=== PATIENT | male | born 1935 | race Caucasian/White ===

== ENCOUNTER → 2018-07-29 | Outpatient (CLI) | payer MEDICARE, BC ==
--- NOTE | 2018-07-29 08:57 | US ---
EXAMINATION TYPE: US carotid duplex BILAT DATE OF EXAM: 07/29/2018 COMPARISON: NONE CLINICAL HISTORY: 83-year-old male R09.89 right carotid bruit. Right carotid bruit, no hx of TIA, no HTN TECHNIQUE: Carotid duplex ultrasound examination. Direct axial criteria utilized. FINDINGS: EXAM MEASUREMENTS: RIGHT: Peak Systolic Velocity (PSV) cm/sec ----- Right CCA: 85.3 ----- Right ICA: 241.6 ----- Right ECA: 103.7 ICA/CCA ratio: 2.8 RIGHT: End Diastole cm/sec ----- Right CCA: 11.7 ----- Right ICA: 47.4 ----- Right ECA: 0.0 LEFT: Peak Systolic Velocity (PSV) cm/sec ----- Left CCA: 106.6 ----- Left ICA: 109.5 ----- Left ECA: 146.3 ICA/CCA ratio: 1.0 LEFT: End Diastole cm/sec ----- Left CCA: 20.6 ----- Left ICA: 28.0 ----- Left ECA: 0.0 VERTEBRALS (direction of flow): Right Vertebral: Antegrade Left Vertebral: Antegrade Rhythm: Normal Fire Safety Director notes: Bilateral wall thickening, plaque seen in bilateral bulbs extending into proximal ICA and left CCA significant stenosis. Elevated right ICA, right bulb and left ECA velocities. IMPRESSION: Proximal right ICA shows elevated velocities. CT angiography of the neck can assess for a potential s evere >70% stenosis. Criteria for Assigning % of Stenosis / Diameter reduction (Estimation based on the indirect measurements of the internal carotid artery velocities (ICA PSV). 1. Normal (no stenosis)=ICA PSV < 125 cm/s: ratio < 2.0: ICA EDV<40 cm/s. 2. Less than 50% stenosis=ICA PSV < 125 cm/s: ratio < 2.0: ICA EDV<40 cm/s. 3. 50 to 69% stenosis=ICA PSV of 125 to 230 cm/s: ration 2.0 ? 4.0: ICA EDV 40-100 cm/s. 4. Greater than 70% stenosis to near occlusion= ICA PSV > 230 cm/s: ratio > 4.0: ICA EDV > 100 cm/s. 5. Near occlusion= ICA PSV velocities may be low or undetectable: variable ratio and ICA EDV. 6. Total occlusion=unable to detect flow.
== END | disposition home or self-care (01) ==
LOC: RADUSWWP 08:08
PROVIDERS: ATTEND Internal Medicine
DX: R09.89 Other specified symptoms and signs involving the circulatory and respiratory systems (principal)
CPT/HCPCS: 93880

== ENCOUNTER → 2018-08-16 | Outpatient (CLI) | payer MEDICARE, BC ==
--- NOTE | 2018-08-16 17:39 | CT ---
EXAMINATION TYPE: CT angio neck DATE OF EXAM: 08/16/2018 HISTORY: Episodes of confusion COMPARISON: Ultrasound 07/29/2018 CT DLP: 243.3 mGycm. Automated Exposure Control for Dose Reduction was Utilized. TECHNIQUE: CTA scan of the neck is performed with IV Contrast, patient injected with 50 mL of Isovue 370, axial images are obtained, coronal and sagittal reformatted images are reviewed. Three-D recons tructed images are created on an independent workstation and reviewed. FINDINGS: Carotid/Vascular Structures: There is a three-vessel arch. Vertebral arteries are codominant. Common carotid arteries have calcification at the bifurcation. This appears to be causing a moderate stenosi s on the left of 50% to less than 70%. There is some poststenotic dilatation noted. Critical stenosis appears to be present at the right carotid bifurcation due to calcification. This is greater than 70 % may be over 90%. Other: Note is made of a small right pleural effusion. There is a consolidation which may be related atelectasis or fibrosis within the right middle lobe adjacent to the major fissure. IMPRESSION: 1. Findings highly suggestive for critical stenosis at the origin of the right internal carotid arter y. Velocities from ultrasound may underestimate the degree of stenosis. 2. More moderate narrowing of the left internal carotid artery origin estimated between 50 and 69%. C orrelate with symptoms. A [place] level critical message alert has been initiated for Chris Aldana MD via the [facility] Critical Results System on 08/16/2018 5:37 PM. This message alert has been sent to Chris Aldana MD via the preferences provided by the clinician for the receipt of Radiology Critical Findings. Message ID [id number].
== END | disposition home or self-care (01) ==
LOC: RADCTMAIN 08:40
PROVIDERS: ATTEND Internal Medicine
DX: I65.22 Occlusion and stenosis of left carotid artery (principal)
CPT/HCPCS: 82565; 84520; 70498; 36415; Q9967

== ENCOUNTER → 2018-08-23 | Outpatient (CLI) | payer MEDICARE, BC ==
--- NOTE | 2018-08-23 16:28 | XR ---
EXAMINATION TYPE: XR chest 2V DATE OF EXAM: 08/23/2018 COMPARISON: Prior chest x-ray 08/11/[address] 08/26/2018 HISTORY: Cough TECHNIQUE: Frontal and lateral views of the chest are obtained. FINDINGS: There is some thickening of the minor fissure, some local airspace disease suspected as on prior exams. Interstitium is mildly increased, apical pleural thickening is again noted. Aorta is de nse. There is a calcified noted in the aorticopulmonary window. No pneumothorax or pleural effusion. Heart is stable. Degenerative disc changes are present in the visualized spine. Prominent lung volume s are compatible with underlying COPD, there is flattening the hemidiaphragms. Calcified nodularity i n left upper lobe is present. IMPRESSION: There may be underlying scarring. Difficult to exclude pneumonia. Old granulomatous dise ase.
== END | disposition home or self-care (01) ==
LOC: RADXRMAIN 14:18
PROVIDERS: ATTEND Internal Medicine
DX: R05 Cough (principal); L92.9 Granulomatous disorder of the skin and subcutaneous tissue, unspecified
CPT/HCPCS: 71046

== ENCOUNTER → 2018-09-09 | Outpatient (CLI) | payer MEDICARE, BC ==
--- NOTE | 2018-09-09 12:46 | XR ---
EXAMINATION TYPE: XR chest 2V DATE OF EXAM: 09/09/2018 COMPARISON: Prior chest x-ray 08/23/2018 HISTORY: Cough TECHNIQUE: Frontal and lateral views of the chest are obtained. FINDINGS: There are prominent lung volumes with flattening the hemidiaphragms. Interstitium is promi nent. There are areas of probable scarring in the right mid lung. Apical pleural thickening is stable . Cardiomediastinal silhouette, pulmonary vascularity and melanie not significantly changed. Aorta is de nse. Evidence of old granulomatous disease again noted. IMPRESSION: There is interval improvement in lung aeration.
== END | disposition home or self-care (01) ==
LOC: RADXRMAIN 10:07
PROVIDERS: ATTEND Internal Medicine
DX: Z09 Encounter for follow-up examination after completed treatment for conditions other than malignant neoplasm (principal); Z87.01 Personal history of pneumonia (recurrent); R05 Cough
CPT/HCPCS: 71046

== ENCOUNTER → 2018-09-16 | Outpatient (CLI) | payer MEDICARE, BC ==
[2018-09-16 15:07] LABS: Basophils # (A) 0.1 k/uL (0-0.2); Basophils % (A) 1 %; Eosinophils # (A) 0.2 k/uL (0-0.7); Eosinophils % (A) 2 %; HCT 35.9 % (39.0-53.0); HGB 11.6 gm/dL (13.0-17.5); Lymphocytes # (A) 1.9 k/uL (1.0-4.8); Lymphocytes % (A) 26 %; MCH 30.7 pg (25.0-35.0); MCHC 32.2 g/dL (31.0-37.0); MCV 95.3 fL (80.0-100.0); Mean Platelet Volume 7.5; Monocytes # (A) 0.4 k/uL (0-1.0); Monocytes % (A) 6 %; Neutrophils # (A) 4.8 k/uL (1.3-7.7); Neutrophils % (A) 65 %; Platelet Count 217 k/uL (150-450); RBC 3.76 m/uL (4.30-5.90); RDW 14.1 % (11.5-15.5); WBC 7.4 k/uL (3.8-10.6)
[2018-09-16 15:13] LABS: Potassium 4.5 mmol/L (3.5-5.1)
== END | disposition home or self-care (01) ==
LOC: LABWHC1 14:23
PROVIDERS: ATTEND Surgery
DX: Z01.812 Encounter for preprocedural laboratory examination (principal); I65.21 Occlusion and stenosis of right carotid artery
CPT/HCPCS: 80051; 82565; 84520; 85025

== ENCOUNTER → 2018-09-22 | Outpatient (CLI) | payer MEDICARE, BC ==
[2018-09-22 11:12] LABS: Basophils # (A) 0.1 k/uL (0-0.2); Basophils % (A) 1 %; Eosinophils # (A) 0.1 k/uL (0-0.7); Eosinophils % (A) 2 %; HCT 38.2 % (39.0-53.0); HGB 12.3 gm/dL (13.0-17.5); Lymphocytes # (A) 1.5 k/uL (1.0-4.8); Lymphocytes % (A) 19 %; MCH 30.8 pg (25.0-35.0); MCHC 32.1 g/dL (31.0-37.0); MCV 95.9 fL (80.0-100.0); Mean Platelet Volume 7.4; Monocytes # (A) 0.4 k/uL (0-1.0); Monocytes % (A) 6 %; Neutrophils # (A) 5.4 k/uL (1.3-7.7); Neutrophils % (A) 71 %; Platelet Count 262 k/uL (150-450); RBC 3.98 m/uL (4.30-5.90); RDW 14.6 % (11.5-15.5); WBC 7.6 k/uL (3.8-10.6)
[2018-09-22 11:21] LABS: Potassium 4.5 mmol/L (3.5-5.1)
== END | disposition home or self-care (01) ==
LOC: LABPAT 10:15
PROVIDERS: ATTEND Surgery
DX: Z01.812 Encounter for preprocedural laboratory examination (principal); I65.21 Occlusion and stenosis of right carotid artery
CPT/HCPCS: 80051; 82565; 84520; 85025; 86850; 86900; 86901

== ENCOUNTER 2018-09-27 11:26 | Inpatient (IN) | payer MEDICARE, BC ==
[~2018-09-27 11:26] MED LIST: LIDOCAINE 1% 20 ML VIAL (10MG/ML) FOR IV START INTRADERMA PRN; ONDANSETRON 4 MG/2 ML VIAL IVP ONE
[2018-09-27] MEDS: LACTATED RINGERS 1,000 ML IV SCH (12:01)
[2018-09-27] MEDS ORDERED: HEPARIN SODIUM,PORCINE 10,000 UNIT/ML 1 ML VIAL ONE (13:03)
[2018-09-27] MEDS ORDERED: LIDOCAINE 1% INJ 10MG/ML (20 ML MDV) ONE (13:03)
[2018-09-27] MEDS ORDERED: PROPOFOL 10 MG/ML 20 ML VIAL IV ONE (13:03)
[2018-09-27] MEDS ORDERED: GLYCOPYRROLATE 0.2 MG/ML 2 ML VIAL ONE (13:03)
[2018-09-27] MEDS ORDERED: PROTAMINE SULFATE 10 MG/ML 5 ML VIAL IV ONE (13:03)
[2018-09-27] MEDS ORDERED: LABETALOL 5 MG/ML VIAL MDV ONE (13:03)
[2018-09-27] MEDS ORDERED: ROCURONIUM BROMIDE 10 MG/ML 10 ML VIAL IV ONE (13:03)
[2018-09-27] MEDS ORDERED: fentaNYL (PF) 50 MCG/ML 2 ML AMP ONE (13:03)
[2018-09-27] MEDS ORDERED: NEOSTIGMINE 1 MG/ML 10 ML VIAL ONE (13:03)
[2018-09-27] MEDS ORDERED: PHENYLEPHRINE-0.9% NACL SYG 1 MG/10 ML SYRINGE ONE (13:03)
[2018-09-27] MEDS ORDERED: LACTATED RINGERS 1,000 ML IV ONE (15:04)
--- NOTE | 2018-09-27 15:16 | P.OP ---
Date of Procedure: 09/27/18 Preoperative Diagnosis: Hemodynamically severe right internal carotid artery stenosis Postoperative Diagnosis: Same. Procedure(s) Performed: Right carotid endarterectomy with patch angioplasty. Anesthesia: JOSE ANTONIO Surgeon: Paul Prakash Estimated Blood Loss (ml): 75 IV fluids (ml): 800 Urine output (ml): 500 Pathology: other (Carotid Plaque) Condition: stable Disposition: ICU Indications for Procedure: Greater than 80% right internal carotid artery stenosis Operative Findings: Partially calcified hemodynamically severe right internal carotid artery stenosis Description of Procedure: Patient was brought the upper and placed in the supine position and administered general endotracheal anesthesia delivered by the department anesthesiology. Patient received intravenously administered prophylactic antibiotics in the perioperative phase. Yoder catheter was placed to gravity drainage. The patient's right lateral neck, supraclavicular and anterior chest wall areas were sterilely prepped and draped in the usual manner. Skin incision along the anterior border of the sternocleidomastoid muscle was made and carried down through the subcu change tissues. Hemostasis was achieved using electrocautery. Platysma muscle was divided and dissection was then carried along the anterior border of the sternocleidomastoid muscle. The facial vein was identified dissected free of investing tissues doubly ligated and divided. The common carotid artery was identified and dissected free of investing tissues. The vagus nerve was identified and left undisturbed. The dissection was carried along the common carotid to the level of bulb. The superior thyroid and external carotid arteries were dissected free of investing tissues and encircled with Vesseloops. The dissection was then carried cephalad along the internal carotid artery to a level past the distal portion of the plaque. The hypoglossal nerve was identified and left undisturbed. The patient was systemically heparinized and ACT was drawn and found to be 350. The Vesseloops surrounding the internal carotid as well as the external carotid, superior thyroid and common carotid arteries were drawn closed. Arteriotomy was made in the common extendable through the level of bulb and into the internal carotid past the level of plaque. Stump pressures were obtained. These were quite low at 23 mmHg mean and a shunt was then placed. Endarterectomy was performed beginning in the common extended to the level of the bulb. A retraction endarterectomy was performed on the external system. The endarterectomy plane was then extended into the internal segment and the distal end feathered off quite well without the need for tacking sutures. The plaque was sent to the department of pathology. The remaining luminal surface was inspected for any loose or free-floating material and this was removed where identified. A bovine pericardial patch was then selected and patch angioplasty closure of the arteriotomy was completed with 6-0 Prolene suture. Just prior to completion of the anastomotic line the internal carotid artery was backbled and no thrombus was retrieved. The arteriotomy was closure was completed. The internal carotid artery was backbled once again and then occluded at its origin. Vessel loops surrounding the superior thyroid, external carotid as well as the common carotid arteries were then released thus flushing any potential debris into the external system. Flow was then restored into the internal carotid segment. One point of bleeding was identified along the anastomotic line and this was controlled with Prolene suture. Excellent pulse in the internal carotid artery distal to the endarterectomy plane was identified. The patient received 25 mg protamine to reverse the heparin effect. The wound was irrigated with antibiotic containing solution. Hemostasis was judged adequate. Deep tissues were closed with 3-0 Vicryl dermis was closed with 4-0 Monocryl placed in running intradermal fashion. Steri-Strips and appropriate dressings were applied. Patient tolerated the procedure well and awoke without apparent complication and was transferred to the recovery area in satisfactory and stable condition.
[2018-09-27] MEDS: HYDROmorphone 0.5 MG/0.5 ML SYRINGE IVP PRN ×2 (15:32→15:42)
[2018-09-27] MEDS ORDERED: DOCUSATE 100 MG CAP PO PRN (16:15)
[2018-09-27] MEDS ORDERED: ALPRAZolam 0.25 MG TAB PO PRN (16:15)
[2018-09-27] MEDS ORDERED: HYDROcodone/APAP 5-325MG 1 EACH TAB PO PRN (16:15)
[2018-09-27 16:24] LABS: Glucose,Whole Blood 86 mg/dL (75-99)
[2018-09-27 16:33] VITALS: BMI 23.1
[2018-09-27] MEDS: SODIUM CHLORIDE 0.9% 1,000 ML IV SCH (16:40)
[2018-09-27] MEDS: ASPIRIN 81 MG PO SCH (17:06)
[2018-09-27] MEDS ORDERED: ACETAMINOPHEN TAB 325 MG TAB PO PRN (20:39)
[2018-09-27] MEDS ORDERED: ATORVASTATIN 20 MG TAB PO SCH (21:00)
[2018-09-28] MEDS: LACTATED RINGERS 1,000 ML IV SCH (01:36)
[2018-09-28 05:05] LABS: Basophils % (A) 0 %; Eosinophils # (A) 0.2 k/uL (0-0.7); Eosinophils % (A) 2 %; HCT 32.3 % (39.0-53.0); HGB 10.8 gm/dL (13.0-17.5); Lymphocytes # (A) 1.4 k/uL (1.0-4.8); Lymphocytes % (A) 19 %; MCH 31.2 pg (25.0-35.0); MCHC 33.3 g/dL (31.0-37.0); MCV 93.6 fL (80.0-100.0); Mean Platelet Volume 7.3; Monocytes # (A) 0.5 k/uL (0-1.0); Monocytes % (A) 6 %; Neutrophils # (A) 5.3 k/uL (1.3-7.7); Neutrophils % (A) 71 %; Platelet Count 216 k/uL (150-450); RBC 3.45 m/uL (4.30-5.90); RDW 14.3 % (11.5-15.5); WBC 7.4 k/uL (3.8-10.6)
[2018-09-28] MEDS: SODIUM CHLORIDE 0.9% 1,000 ML IV SCH (05:07)
[2018-09-28 05:12] LABS: African American GFR (CKD) >90 (>60 ml/min/1.73 sqM); Anion Gap 6 mmol/L; Blood Urea Nitrogen 21 mg/dL (9-20); Calcium 8.2 mg/dL (8.4-10.2); Carbon Dioxide 23 mmol/L (22-30); Chloride 101 mmol/L (98-107); Glucose 93 mg/dL (74-99); Non-African American GFR(CKD) 82 (>60 ml/min/1.73 sqM); Potassium 4.3 mmol/L (3.5-5.1); Sodium 130 mmol/L (137-145)
[2018-09-28] MEDS: ASPIRIN 81 MG PO SCH (08:47)
[2018-09-28 08:55] VITALS: TEMP 98.1
--- NOTE | 2018-09-28 12:00 | P.CNPUL ---
History of Present Illness Consult date: 09/28/18 Requesting physician: Paul Prakash Reason for consult: other (Critical care management) Chief complaint: Carotid stenosis History of present illness: This is a very pleasant 83-year-old gentleman with a known history of gastroesophageal reflux disease. He was also recently found to have a greater than 80% right internal carotid artery artery stenosis. He presented here electively yesterday for right carotid endarterectomy with patch angioplasty performed by Dr. Prakash. He is seen today in consultation in the intensive care unit. He is awake and alert in no acute distress. No neurologic deficits. Currently sitting up in a chair at the bedside. No shortness of breath, cough or congestion. No dizziness lightheadedness. No headaches. No noted weakness. He is maintaining good O2 saturations in the upper 90s on room air. He's been hemodynamically stable. Afebrile. White count 7.4. Hemoglobin 10.8. Sodium 130. Potassium 4.3. Creatinine 0.82. Dressing to the right neck is dry and intact. 0.9 normal saline at 100 ML's per hour. Currently on Lipitor and aspirin. Review of Systems REVIEW OF SYSTEMS: CONSTITUTIONAL: Denies any recent significant weight loss or weight gain. EYES: Denies change in vision. EARS, NOSE, MOUTH, THROAT: Denies headaches, denies sore throat. CARDIOVASCULAR: Denies chest pain, palpitations or syncopal episodes. RESPIRATORY: Denies shortness of breath, cough, congestion or hemoptysis. GASTROINTESTINAL: Denies change in appetite, denies abdominal pain GENITOURINARY: Denies hematuria, denies infections. MUSKULOSKELETAL: Denies pain, denies swelling. INTEGUMENTARY: Denies rash, denies eczema. NEUROLOGICAL: Denies recent memory loss, no recent seizure activity. PSYCHIATRIC: Denies anxiety, denies depression. HEMATOLOGIC/LYMPHATIC: Denies anemia, denies enlarged lymph nodes. Past Medical History Past Medical History: Cancer, Chest Pain / Angina, COPD, GERD/Reflux, Hypertension, Osteoarthritis (OA), Pneumonia, Seizure Disorder, Vascular Disorder Additional Past Medical History / Comment(s): hx hypoglycemia. current - recurring bladder cancer for past 20 years. grand mal seizure age 30 none since- pt states [facility] attributed to low blood sugars, off balance at times, hand tremors, freq.night urination History of Any Multi-Drug Resistant Organisms: None Reported Past Surgical History: Back Surgery, Orthopedic Surgery Additional Past Surgical History / Comment(s): rt rotator cuff, haley cataract surgery Past Anesthesia/Blood Transfusion Reactions: No Reported Reaction Smoking Status: Former smoker - Past Family History Brother(s) Family Medical History: COPD Sister(s) Family Medical History: COPD Father Family Medical History: Eye Disorder Additional Family Medical History / Comment(s): macular degeneration Mother Family Medical History: CVA/TIA, Dementia, Neurologic Disorder Additional Family Medical History / Comment(s): parkinsons Medications and Allergies Home Medications Medication Instructions Recorded Confirmed Type Aspirin 81 mg PO DAILY 07/31/14 09/27/18 History Omeprazole 20 mg PO DAILY 07/31/14 09/27/18 History Nitroglycerin Sl Tabs [Nitrostat] 0.4 mg SUBLINGUAL Q5M PRN #25 tab 08/08/14 09/27/18 Rx Fexofenadine HCl [Berenice Allergy] 180 mg PO DAILY 09/20/18 09/27/18 History Lisinopril 10 mg PO DAILY 09/20/18 09/27/18 History Allergies Allergy/AdvReac Type Severity Reaction Status Date / Time adhesive tape Allergy Rash/Hives Verified 09/27/18 16:04 latex Allergy Rash/Hives Verified 09/27/18 16:04 codeine AdvReac Nausea & Verified 09/27/18 16:04 Vomiting Physical Exam Vitals: Vital Signs Temp Pulse Pulse Resp BP BP BP 09/28/18 11:00 64 15 101/55 09/28/18 10:00 64 14 134/78 09/28/18 09:00 67 14 143/61 09/28/18 08:00 98.1 F 68 12 118/62 09/28/18 07:00 80 22 118/62 09/28/18 06:00 60 12 118/62 09/28/18 05:00 68 7 L 102/49 09/28/18 04:00 98.6 F 61 10 L 09/28/18 03:00 73 10 L 09/28/18 02:00 58 L 8 L 92/49 09/28/18 01:00 66 12 92/49 09/28/18 00:00 98.4 F 63 10 L 101/51 09/27/18 23:00 61 10 L 101/51 09/27/18 22:31 61 11 L 101/51 09/27/18 22:00 62 10 L 101/51 09/27/18 21:00 66 11 L 101/51 09/27/18 20:00 98.0 F 67 13 101/51 09/27/18 19:00 74 17 09/27/18 18:30 68 16 90/48 09/27/18 18:00 66 10 L 106/59 09/27/18 17:00 60 58 L 6 L 09/27/18 16:30 97.6 F 62 15 106/59 09/27/18 15:45 54 L 18 108/58 118/47 09/27/18 15:30 59 L 16 118/57 117/47 09/27/18 15:15 60 14 117/63 127/49 09/27/18 15:08 70 14 114/45 140/46 09/27/18 12:00 98.0 F 74 16 138/68 Pulse Ox 09/28/18 11:00 97 09/28/18 10:00 98 09/28/18 09:00 98 09/28/18 08:00 97 09/28/18 07:00 96 09/28/18 06:00 99 09/28/18 05:00 94 L 09/28/18 04:00 95 09/28/18 03:00 96 09/28/18 02:00 96 09/28/18 01:00 98 09/28/18 00:00 95 09/27/18 23:00 96 09/27/18 22:31 97 09/27/18 22:00 96 09/27/18 21:00 97 09/27/18 20:00 95 09/27/18 19:00 96 09/27/18 18:30 96 09/27/18 18:00 98 09/27/18 17:00 98 09/27/18 16:30 99 09/27/18 15:45 97 09/27/18 15:30 99 09/27/18 15:15 100 09/27/18 15:08 98 09/27/18 12:00 98 Intake and Output 09/27/18 09/28/18 09/28/18 22:59 06:59 14:59 Intake Total 1740 1200 640 Output Total 0 850 700 Balance 1740 350 -60 Intake: IV 800 800 340 Sodium Chloride 0.9% 1, 300 800 340 000 ml @ 100 mls/hr IV . Q10H DEANA Rx#:[id number] Intake, IV Titration 300 Amount Sodium Chloride 0.9% 1, 300 000 ml @ 100 mls/hr IV . Q10H DEANA Rx#:[id number] Oral 640 400 300 Output: Urine 0 850 700 Straight 600 Other: Voiding Method Self-Catheterization Weight 71.1 kg 75.9 kg ABP, PAP, CO, CI - Last 8 Hours Arterial Blood Pressure 119/47 GENERAL EXAM: Alert, active, pleasant 83-year-old gentleman, comfortable in no apparent distress. On room air. HEAD: Normocephalic. EYES: Normal reaction of pupils, equal size. NOSE: Clear with pink turbinates. THROAT: No erythema or exudates. NECK: Dressing to the right neck is dry and intact. No masses, no JVD. CHEST: No chest wall deformity. LUNGS: Equal air entry with no crackles, wheeze, rhonchi or dullness. CVS: S1 and S2 normal with no audible murmur, regular rhythm. ABDOMEN: No hepatosplenomegaly, normal bowel sounds, no guarding or rigidity. SPINE: No scoliosis or deformity SKIN: No rashes CENTRAL NERVOUS SYSTEM: No focal deficits, tone is normal in all 4 extremities. EXTREMITIES: There is no peripheral edema. No clubbing, no cyanosis. Peripheral pulses are intact. Results - Laboratory Findings CBC and BMP: 09/28/18 04:50 09/28/18 04:50 Abnormal lab findings: Abnormal Labs 09/28/18 09/28/18 04:50 04:50 RBC 3.45 L Hgb 10.8 L Hct 32.3 L Sodium 130 L BUN 21 H Calcium 8.2 L Assessment and Plan Assessment: Impression: #1 Significant right-sided carotid stenosis greater than 80%. Status post right carotid endarterectomy with patch angioplasty. This operative day #1. #2 Remote history of chronic tobacco dependence. #3 Gastroesophageal reflux disease. Plan: The patient was seen and evaluated by Dr. Colunga. He is stable from the critical care standpoint. Probable discharge home today once cleared by vascula r surgery. In the interim, we'll continue full supportive care. No neurologic deficits. I, the cosigning physician, performed a history & physical examination of the patient. Lungs sounds are clear. Maintaining good O2 saturations in the 90s on room air. I discussed the assessment and plan of care with my nurse practitioner, Angeline Chisholm. I attest to the above note as dictated by her. Time with Patient: Greater than 30
[2018-09-28 15:13] VITALS: BP 129/56; PULSE 71; RESP 16
== END 2018-09-28 15:26 | disposition home or self-care (01) | DRG 39 ==
LOC: 2ORMAIN 11:26 → 2SICU 15:12
PROVIDERS: ADMIT Surgery; ATTEND Surgery
PROC: 03UK0KZ Supplement Right Internal Carotid Artery with Nonautologous Tissue Substitute, Open Approach (ICD-10-PCS; 2018-09-27)
PROC: 03CK0ZZ Extirpation of Matter from Right Internal Carotid Artery, Open Approach (ICD-10-PCS; principal; 2018-09-27 13:00)
DX: I65.21 Occlusion and stenosis of right carotid artery (principal); G40.909 Epilepsy, unspecified, not intractable, without status epilepticus; I10 Essential (primary) hypertension; J44.9 Chronic obstructive pulmonary disease, unspecified; K21.9 Gastro-esophageal reflux disease without esophagitis; Z79.82 Long term (current) use of aspirin; Z79.899 Other long term (current) drug therapy; Z82.0 Family history of epilepsy and other diseases of the nervous system; Z82.5 Family history of asthma and other chronic lower respiratory diseases; Z87.891 Personal history of nicotine dependence; Z87.01 Personal history of pneumonia (recurrent); Z98.42 Cataract extraction status, left eye; Z98.41 Cataract extraction status, right eye; Z83.518 Family history of other specified eye disorder; Z88.5 Allergy status to narcotic agent; Z91.040 Latex allergy status
CPT/HCPCS: 80048; 85025; 86850; 86900; 86901; 88304; 88311

== ENCOUNTER → 2019-02-23 | Outpatient (CLI) | payer MEDICARE, BC ==
--- NOTE | 2019-02-23 14:00 | MR ---
EXAMINATION TYPE: MR angio head wo con DATE OF EXAM: 02/23/2019 COMPARISON: MR brain same date HISTORY: Dizziness, status post carotid endarterectomy TECHNIQUE: Time of flight images focusing on the [place] of [place] were performed without contrast. Ru dimentary reconstructions on an alternate workstation. FINDINGS: Right vertebral artery is dominant, vertebral arteries are patent. Internal carotid arterie s are patent. No evident aneurysm, dissection, or embolus. Persistent origin of the posterior c erebral artery on the right is noted. The A1 segment of the right internal carotid artery is atrophic . IMPRESSION: No evident aneurysm or embolus. No dissection.
--- NOTE | 2019-02-23 14:12 | MR ---
EXAMINATION TYPE: MR brain wo/w con DATE OF EXAM: 02/23/2019 COMPARISON: MR angiogram same date HISTORY: Dizziness TECHNIQUE: Multiplanar, multisequence images of the brain and brainstem is performed without and with IV contras t, utilizing 7 mL intravenous Gadavist . FINDINGS: Artifact which may be due to dental work is noted anteriorly. Diffusion weighted images dem onstrate no evidence of a recent infarct or other diffusion abnormality. There is no extra-axial flu id collection. Confluent and scattered periventricular, Callosal, subcortical white matter hyperintensities present on inversion recovery T2-weighted sequenc es, approximately 30-40 lesions are present. There are normal vascular flow voids. The ventricular sy stem and cisternal spaces are normal in size and appearance. The brain volume is age appropriate. Th ere is cortical atrophy. Midline structures demonstrate normal morphology. The craniocervical junction appears within normal limits. Post contrast images demonstrate small focus of enhancement within the yara measuring approx imately 6 x 7 mm in size, the dural venous sinuses appear patent. The visualized sinuses are remarkab le for mild mucosal disease in the ethmoid air cells, frontal sinus and the globes are intact. IMPRESSION: Age-related atrophy and probable chronic small vessel ischemic changes. Findings within t he yara may represent capillary telangiectasia but is indeterminate.
== END | disposition home or self-care (01) ==
LOC: RADMRIMAIN 09:12
PROVIDERS: ATTEND Internal Medicine
DX: G31.1 Senile degeneration of brain, not elsewhere classified (principal); Z98.890 Other specified postprocedural states
CPT/HCPCS: 70544; 70553; A9585

== ENCOUNTER 2020-06-18 | Emergency (ER) | payer MEDICARE, BC ==
--- NOTE | 2020-06-18 17:09 | ED ---
Male Urogenital HPI - General Source: patient, RN notes reviewed Mode of arrival: ambulatory Limitations: no limitations <Burak Cortez - Last Filed: 06/18/20 17:47> <Nava Patel - Last Filed: 06/30/20 17:47> - General Chief complaint: Urogenital Stated complaint: Male UG Time Seen by Provider: 06/18/20 16:52 - History of Present Illness Initial comments: Patient is an 85-year-old male that presents to emergency department with urinary retention. He notes that he does have a history of bladder cancer and f ollows up with the urologist regularly for scopes. He notes that he was there this morning got a scope but has been able to void since then. He notes he did call the office back but the doctor had left so he came to the emergency room. He notes that he would prefer to get a straight cath versus a Yoder bag as he did drive himself here. He will follow-up with his urologist tomorrow in the office. He notes that he is usually able to void after scopes but today he didn't have to. He does have discomfort on palpation over his bladder. He denied any chest pain shortness of breath headache nausea vomiting diarrhea constipation fever fatigue chills. (Burak Cortez) - Related Data Home Medications Medication Instructions Recorded Confirmed Aspirin 81 mg PO DAILY 07/31/14 09/27/18 Omeprazole 20 mg PO DAILY 07/31/14 09/27/18 Fexofenadine HCl [Berenice Allergy] 180 mg PO DAILY 09/20/18 09/27/18 lisinopriL 10 mg PO DAILY 09/20/18 09/27/18 Previous Rx's Medication Instructions Recorded Nitroglycerin Sl Tabs [Nitrostat] 0.4 mg SUBLINGUAL Q5M PRN #25 tab 08/08/14 Acetaminophen Tab [Tylenol] 650 mg PO Q6HR PRN tab 09/28/18 Atorvastatin [Lipitor] 20 mg PO HS #30 tab 09/28/18 Allergies Allergy/AdvReac Type Severity Reaction Status Date / Time adhesive tape Allergy Rash/Hives Verified 06/18/20 17:22 latex Allergy Rash/Hives Verified 06/18/20 17:22 codeine AdvReac Nausea & Verified 06/18/20 17:22 Vomiting Review of Systems ROS Other: All systems not noted in ROS Statement are negative. <Burak Cortez - Last Filed: 06/18/20 17:47> ROS Other: All systems not noted in ROS Statement are negative. <ChintanbarbaraNava Tonja - Last Filed: 06/30/20 17:47> ROS Statement: Those systems with pertinent positive or pertinent negative responses have been documented in the HPI. Past Medical History Past Medical History: Cancer, Chest Pain / Angina, COPD, GERD/Reflux, Hypertension, Osteoarthritis (OA), Pneumonia, Seizure Disorder, Vascular Disorder Additional Past Medical History / Comment(s): hx hypoglycemia. current - recurring bladder cancer for past 20 years. grand mal seizure age 30 none since- pt states [facility] attributed to low blood sugars, off balance at times, hand tremors, freq.night urination History of Any Multi-Drug Resistant Organisms: None Reported Past Surgical History: Back Surgery, Orthopedic Surgery Additional Past Surgical History / Comment(s): rt rotator cuff, haley cataract surgery , skin cancer- Past Anesthesia/Blood Transfusion Reactions: No Reported Reaction Past Psychological History: No Psychological Hx Reported Smoking Status: Former smoker Past Alcohol Use History: Daily Past Drug Use History: None Reported - Past Family History Brother(s) Family Medical History: COPD Sister(s) Family Medical History: COPD Father Family Medical History: Eye Disorder Additional Family Medical History / Comment(s): macular degeneration Mother Family Medical History: CVA/TIA, Dementia, Neurologic Disorder Additional Family Medical History / Comment(s): parkinsons <Burak Cortez - Last Filed: 06/18/20 17:47> General Exam Limitations: no limitations General appearance: alert, in no apparent distress Head exam: Present: atraumatic, normocephalic, normal inspection Eye exam: Present: normal appearance, PERRL, EOMI. Absent: scleral icterus, conjunctival injection, periorbital swelling ENT exam: Present: normal exam, mucous membranes moist Neck exam: Present: normal inspection Respiratory exam: Present: normal lung sounds bilaterally. Absent: respiratory distress, wheezes, rales, rhonchi, stridor Cardiovascular Exam: Present: regular rate, normal rhythm, normal heart sounds. Absent: systolic murmur, diastolic murmur, rubs, gallop, clicks GI/Abdominal exam: Present: soft, tenderness (Over the bladder more discomfort than anything), normal bowel sounds. Absent: distended, guarding, rebound, rigid Extremities exam: Present: normal inspection, full ROM, normal capillary refill. Absent: tenderness, pedal edema, joint swelling, calf tenderness Neurological exam: Present: alert, oriented X3, CN II-XII intact Psychiatric exam: Present: normal affect, normal mood Skin exam: Present: warm, dry, intact, normal color. Absent: rash <Burak Cortez - Last Filed: 06/18/20 17:47> Course Vital Signs 06/18/20 16:43 Temperature 97.3 F L Pulse Rate 75 Respiratory 18 Rate Blood Pressure 122/67 O2 Sat by Pulse 99 Oximetry Medical Decision Making <Burak Cortez - Last Filed: 06/18/20 17:47> <Nava Patel - Last Filed: 06/30/20 17:47> - Medical Decision Making 85-year-old male complaining of bladder retention after a scope this morning at his urologist. Bladder scan, straight urinary catheterization ordered. Patient says he feels much better after the straight catheterization. Case discussed with Dr. Patel, patient to follow-up with urologist in the morning. (Burak Cortez) I was available for consultation in the emergency department. The history and physical exam were done by the midlevel provider. I was consulted for this patients care. I reviewed the case with the midlevel provider and based on their presentation of the patient, I agree with the assessment, medical decision making and plan of care as documented. Chart was dictated using [employer] dictation software. Attempts were made to correct any dictation errors however some typographical errors may persist. Patient was seen during a national state of emergency due to the Covid-19 pandemic. (Nava Patel) Disposition Is patient prescribed a controlled substance at d/c from ED?: No Time of Disposition: 17:48 <Burak Cortez - Last Filed: 06/18/20 17:47> <Nava Patel - Last Filed: 06/30/20 17:47> Clinical Impression: Urinary retention Disposition: HOME SELF-CARE Condition: Stable Instructions (If sedation given, give patient instructions): Urinary Retention in Men (ED) Additional Instructions: Please return to the Emergency Department if symptoms worsen or any other concerns. Follow-up with primary care and urologist in the next day or 2. Referrals: Kaylyn Stanton MD [Primary Care Provider] - 1-2 days
== END 2020-06-18 17:59 | disposition home or self-care (01) ==
CPT/HCPCS: 51701; 88108; 99283

== ENCOUNTER → 2020-07-17 | Outpatient (CLI) | payer MEDICARE, BC ==
--- NOTE | 2020-07-17 11:09 | XR ---
EXAM TYPE: LUMBAR SPINE X RAY SERIES COMPARISON: NONE HISTORY: Back pain TECHNIQUE: 3 views are submitted. FINDINGS: Alignment is anatomic. The pedicles are intact. The transverse processes are intact. There is scol iosis with multilevel severe degenerative disc disease. Vascular calcifications are noted. Diffuse os teopenia. IMPRESSION: 1. Severe multilevel degenerative disc disease.
== END | disposition home or self-care (01) ==
LOC: RADXRMAIN 10:39
PROVIDERS: ATTEND Internal Medicine
DX: M51.36 Other intervertebral disc degeneration, lumbar region (principal)
CPT/HCPCS: 72100

== ENCOUNTER → 2020-08-07 | Outpatient (CLI) | payer MEDICARE, BC ==
--- NOTE | 2020-08-07 11:13 | P.STRESS ---
- Stress Test Note Stress Test Results/Findings: Exam Performed: stress echo exercise Exam Date: 08/07/20 Reason for Exam: YOAN, DIZZINESS Height: 5 ft 8 in Weight: 142 kg Protocol: STRESS ECHO Stage: 1 Duration of Exercise: 3:00 Resting Heart Rate: 72 Resting Blood Pressure: 130/50 Maximum Achieved Heart Rate: 132 Maximum Achieved Blood Pressure: 179/76 85% PMHR: 115 100% PMHR: 135 METS: 4.6 Technologist Comment: Stress Test Results/Findings: This is a 85-year-old gentleman with history of smoking being evaluated for symptoms of dizziness and shortness of breath. Stress data: Blood pressure at rest is 130/50 with a pulse rate of 72. Baseline EKG showed sinus rhythm with normal [place] interval and QRS duration. Patient walked on the Sherwin protocol for 3 minutes, achieving a maximum heart rate of 132 with a blood pressure 165/77. EKGs taken during and after exercise did not reveal any significant changes from the baseline. Echo data: Baseline echo images showed normal wall motion and thickening. Exercise and post x-rays images showed augmentation of wall motion and thickening in all segments. Final impression: #1. Negative stress test #2. Negative stress echo. #3. Patient did not express any chest pain.
--- NOTE | 2020-08-09 11:17 | EST ---
Stress Test Results/Findings: Exam Performed: stress echo exercise Exam Date: 08/07/20 Reason for Exam: YOAN, DIZZINESS Height: 5 ft 8 in Weight: 142 kg Protocol: STRESS ECHO Stage: 1 Duration of Exercise: 3:00 Resting Heart Rate: 72 Resting Blood Pressure: 130/50 Maximum Achieved Heart Rate: 132 Maximum Achieved Blood Pressure: 179/76 85% PMHR: 115 100% PMHR: 135 METS: 4.6 Technologist Comment: Stress Test Results/Findings: This is a 85-year-old gentleman with history of smoking being evaluated for symptoms of dizziness and shortness of breath. Stress data: Blood pressure at rest is 130/50 with a pulse rate of 72. Baseline EKG showed sinus rhythm with normal IN interval and QRS duration. Patient walked on the Sherwin protocol for 3 minutes, achieving a maximum heart rate of 132 with a blood pressure 165/77. EKGs taken during and after exercise did not reveal any significant changes from the baseline. Echo data: Baseline echo images showed normal wall motion and thickening. Exercise and post x-rays images showed augmentation of wall motion and thickening in all segments. Final impression: #1. Negative stress test #2. Negative stress echo. #3. Patient did not express any chest pain. MTDD
== END | disposition home or self-care (01) ==
LOC: RADNMMAIN 09:43
PROVIDERS: ATTEND Internal Medicine
DX: R06.02 Shortness of breath (principal); T78.40XA Allergy, unspecified, initial encounter; Z88.5 Allergy status to narcotic agent; Z91.040 Latex allergy status
CPT/HCPCS: 93351

== ENCOUNTER → 2021-03-05 | Outpatient (CLI) | payer MEDICARE, BC ==
--- NOTE | 2021-03-05 09:33 | CT ---
EXAMINATION TYPE: CT chest wo con DATE OF EXAM: 03/05/2021 COMPARISON: None HISTORY: jorge on exertion CT DLP: 392.4 mGycm High-resolution noncontrast CT of the chest was performed with the patient in the prone and supine po sitions. Lung and mediastinal window settings are submitted. Wedge-shaped pleural-based infiltrate right upper lobe posteriorly measuring 2.7 x 2.5 cm. Additional pleural-based nodule right upper lobe measuring 1.1 cm. Mild scattered subpleural fibrosis. No signi ficant bronchiectasis. No evidence of pleural effusion. The heart is of normal size. Coronary artery calcifications noted. Thoracic aorta is of normal caliber. Upper abdominal structures are within norm al limits. IMPRESSION: 1. 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 2. Right upper lobe pleural-based nodule as well as a right upper lobe wedge-shaped infiltrate are no nspecific. Follow-up CT chest examination advised in 3 to 4 months.
== END | disposition home or self-care (01) ==
LOC: RADCTMAIN 08:44
PROVIDERS: ATTEND Internal Medicine Critical Care Medicine
DX: J94.1 Fibrothorax (principal); R91.1 Solitary pulmonary nodule
CPT/HCPCS: 71250

== ENCOUNTER → 2021-06-05 | Outpatient (CLI) | payer MEDICARE, BC ==
--- NOTE | 2021-06-05 22:00 | CT ---
EXAMINATION TYPE: CT chest w con DATE OF EXAM: 06/05/2021 COMPARISON: CT chest 03/05/2021 HISTORY: Previous abnormal exam, dyspnea upon exertion CT DLP: 394 mGycm. Automated Exposure Control for Dose Reduction was Utilized. TECHNIQUE: Multiple contiguous axial CT images of the chest were obtained with IV Contrast, patient i njected with 100ml mL of Isovue 300. Sagittal and coronal reformatted images were obtained. FINDINGS: Cardiac size appears within normal limits. No pericardial effusion. Moderate coronary artery calcific ations. Thoracic aorta and main pulmonary arteries are of normal caliber. Scattered nonenlarged calci fied mediastinal lymph nodes. No axillary lymphadenopathy. Central airways are normal course and caliber. Mild burden of subpleural reticulation/fibrosis with r edemonstration of scattered wedge-shaped small areas of opacification, which appear unchanged from pr ior. No pleural effusion or pneumothorax. No suspicious pulmonary nodules. There are multilevel degenerative changes of the thoracic spine with prominent superior endplate Schm orl's node of the T12 vertebral body, which is unchanged from priors. Limited visualization of the upper abdomen demonstrates scattered calcified granulomas of the spleen. IMPRESSION: 1. Stable mild subpleural fibrotic changes of the lungs with small scattered wedge-shaped areas of op acification. 2. No new focal consolidation, pleural effusion, or pneumothorax.
== END | disposition home or self-care (01) ==
LOC: RADCTMAIN 15:02
PROVIDERS: ATTEND Internal Medicine Critical Care Medicine
DX: J84.10 Pulmonary fibrosis, unspecified (principal)
CPT/HCPCS: 82565; 84520; 71260; 36415; Q9967

== ENCOUNTER → 2021-11-28 | Outpatient (CLI) | payer MEDICARE, BC ==
[2021-11-28 13:57] LABS: Appearance,Urine Clear (Clear); Bilirubin,Urine Negative (Negative); Blood,Urine Large (Negative); Color,Urine Light Yellow; Glucose,Urine (UA) Negative (Negative); Ketones,Urine Negative (Negative); Leukocyte Esterase,Urine Negative (Negative); Mucus,Urine Rare /hpf; Nitrite,Urine Negative (Negative); PH, Urine 5.5 (5.0-8.0); Protein,Urine Negative (Negative); RBC,Urine 87 /hpf (0-5); Specific Gravity,Urine 1.008 (1.001-1.035); Squamous Epithelial Cell,Urine 1 /hpf (0-4); Urobilinogen,Urine <2.0 mg/dL (<2.0); WBC,Urine 2 /hpf (0-5)
[2021-11-28 18:36] LABS: Basophils # (A) 0.06 X 10*3/uL (0.00-0.10); Basophils % (A) 0.8 %; Eosinophils # (A) 0.27 X 10*3/uL (0.04-0.35); Eosinophils % (A) 3.6 %; HCT 36.1 % (39.6-50.0); HGB 11.7 g/dL (13.0-17.0); Immature Grans, Automated 0.4 %; Lymphocytes # (A) 1.72 X 10*3/uL (0.90-5.00); Lymphocytes % (A) 22.8 %; MCH 29.8 pg (27.0-32.0); MCHC 32.4 g/dL (32.0-37.0); MCV 92.1 fL (80.0-97.0); Mean Platelet Volume 10.5 fL (9.5-12.2); Monocytes # (A) 0.67 X 10*3/uL (0.20-1.00); Monocytes % (A) 8.9 %; NRBC Per 100 WBC 0 /100 WBCS (0.0-0.0); Neutrophils # (A) 4.79 X 10*3/uL (1.80-7.70); Neutrophils % (A) 63.5 %; Platelet Count 234 X 10*3/uL (140-440); RBC 3.92 X 10*6/uL (4.40-5.60); RDW 14.2 % (11.5-14.5); WBC 7.54 X 10*3/uL (4.50-10.00)
[2021-11-28 18:45] LABS: African American GFR (CKD) 70.1 (60.0-200.0); Anion Gap 8.4 mmol/L (10.00-18.00); BUN/Creat Ratio 23.55 Ratio (12.00-20.00); Blood Urea Nitrogen 25.9 mg/dL (9.0-27.0); Calcium 9.2 mg/dL (8.7-10.3); Carbon Dioxide 22.6 mmol/L (20.0-27.5); Non-African American GFR(CKD) 60.5 (60.0-200.0); Potassium 4.9 mmol/L (3.5-5.5)
== END | disposition home or self-care (01) ==
LOC: LABWHC1 12:13
PROVIDERS: ATTEND Psychiatry & Neurology Neurology
DX: Z51.81 Encounter for therapeutic drug level monitoring (principal)
CPT/HCPCS: 36415; 80048; 81001; 85025

== ENCOUNTER 2022-08-25 13:44 | Inpatient (IN) | payer MEDICARE, BC ==
--- NOTE | 2022-08-25 13:52 | ED ---
General Adult HPI <Johnathon Mcnairophe - Last Filed: 08/25/22 17:36> - General Source: RN notes reviewed <Alamz Gudino - Last Filed: 08/25/22 18:32> - General Stated complaint: sob Time Seen by Provider: 08/25/22 13:51 - History of Present Illness Initial comments: This is an 87-year-old male who presents emergency Department complaining that he short of breath and has been ongoing for about 2 weeks per patient states exertion definitely makes it worse. 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 Chaparro attending Dr. Chaparro as determined the emergency depar tment to be evaluated. Patient denies any recent fever chills or cough per patient denies any palpitations. Patient denies any chest pain or pressure. Patient denies any lightheadedness or dizziness. Patient states he about 2 weeks ago had surgery to remove some bladder tumors and he has had a little bit of bleeding in his urine but very minimal. Patient denies any abdominal pain patient denies nausea vomiting diarrhea. Patient has a black or bloody stools. Patient denies being any blood thinners. (Eric Mcnair) 87-year-old male presents to the emergency department with a chief complaint of worsening shortness of breath. He presents from primary care office who did an x-ray however recommended he be evaluated in the emergency department for further evaluation. I performed a critical portion of this chart. Signed Almaz Gudino PA-C (Almaz Gudino) - Related Data Home Medications Medication Instructions Recorded Confirmed Aspirin 81 mg PO DAILY 07/31/14 08/25/22 Omeprazole 20 mg PO DAILY 07/31/14 08/25/22 Acetaminophen Tab [Tylenol Tab] 1,000 mg PO Q4H PRN 08/25/22 08/25/22 Albuterol Sulfate [Ventolin HFA] 2 puff INHALATION RT-QID PRN 08/25/22 08/25/22 Budesonide [Pulmicort Flexhaler] 1 puff INHALATION RT-BID 08/25/22 08/25/22 Loratadine [Claritin] 10 mg PO DAILY 08/25/22 08/25/22 Topiramate [Topamax] 25 mg PO BID 08/25/22 08/25/22 Vit C/E/Zn/Coppr/Lutein/Zeaxan 1 cap PO DAILY 08/25/22 08/25/22 [Preservision Areds 2 Softgel] Previous Rx's Medication Instructions Recorded Atorvastatin [Lipitor] 20 mg PO HS #30 tab 09/28/18 Allergies Allergy/AdvReac Type Severity Reaction Status Date / Time adhesive tape Allergy Rash/Hives Verified 08/25/22 16:32 latex Allergy Rash/Hives Verified 08/25/22 16:32 codeine AdvReac Nausea & Verified 08/25/22 16:32 Vomiting Review of Systems ROS Other: All systems not noted in ROS Statement are negative. <Eric Mcnair - Last Filed: 08/25/22 17:36> ROS Other: All systems not noted in ROS Statement are negative. <Almaz Gudino - Last Filed: 08/25/22 18:32> ROS Statement: Those systems with pertinent positive or pertinent negative responses have been documented in the HPI. Past Medical History Past Medical History: Cancer, Chest Pain / Angina, COPD, GERD/Reflux, Hypertension, Osteoarthritis (OA), Pneumonia, Seizure Disorder, Vascular Disorder Additional Past Medical History / Comment(s): hx hypoglycemia. current - recurring bladder cancer for past 20 years. grand mal seizure age 30 none since- pt states [facility] attributed to low blood sugars, off balance at times, hand tremors, freq.night urination History of Any Multi-Drug Resistant Organisms: None Reported Past Surgical History: Back Surgery, Orthopedic Surgery Additional Past Surgical History / Comment(s): rt rotator cuff, haley cataract surgery , skin cancer- Past Anesthesia/Blood Transfusion Reactions: No Reported Reaction Past Psychological History: No Psychological Hx Reported Smoking Status: Former smoker Past Alcohol Use History: Daily Past Drug Use History: None Reported - Past Family History Brother(s) Family Medical History: COPD Sister(s) Family Medical History: COPD Father Family Medical History: Eye Disorder Additional Family Medical History / Comment(s): macular degeneration Mother Family Medical History: CVA/TIA, Dementia, Neurologic Disorder Additional Family Medical History / Comment(s): parkinsons <Almaz Gudino - Last Filed: 08/25/22 18:32> General Exam <Eric Mcnair - Last Filed: 08/25/22 17:36> <Almaz Gudino - Last Filed: 08/25/22 18:32> - General Exam Comments Initial Comments: GENERAL: Patient is well-developed and well-nourished. Patient is nontoxic and well- hydrated and is in no acute distress. ENT: Neck is soft and supple. No significant lymphadenopathy is noted. Oropharynx is clear. Moist mucous membranes. Neck has full range of motion without eliciting any pain. EYES: The sclera were anicteric and conjunctiva were pink and moist. Extraocular movements were intact and pupils were equal round and reactive to light. Eyelids were unremarkable. PULMONARY: Unlabored respirations. Good breath sounds bilaterally. No audible rales rhonchi or wheezing was noted. CARDIOVASCULAR: There is a regular rate and rhythm without any murmurs gallops or rubs. Femoral pulses are equal bilaterally ABDOMEN: Soft and nontender with normal bowel sounds. No palpable organomegaly was noted. There is no palpable pulsatile mass. SKIN: Skin is clear with no lesions or rashes and otherwise unremarkable. NEUROLOGIC: Patient is alert and oriented x3. Cranial nerves II through XII are grossly intact. Motor and sensory are also intact. Normal speech, volume and content. Symmetrical smile. MUSCULOSKELETAL: Normal extremities with adequate strength and full range of motion. No lower extremity swelling or edema. No calf tenderness. LYMPHATICS: No significant lymphadenopathy is noted PSYCHIATRIC: Normal psychiatric evaluation. (Eric Mcnair) Visual Physical Exam Vital signs reviewed General: Well-appearing, nontoxic, no acute distress. Head: Normocephalic, atraumatic Eyes: PERRLA, EOMI ENT: Airway patent Chest: Nonlabored breathing Skin: No visual rash, normal skin tone Neuro: Alert and oriented 3 Musculoskeletal: No gross abnormalities (Almaz Gudino) Course Vital Signs 08/25/22 08/25/22 08/25/22 14:03 14:40 15:23 Temperature 97.3 F L Pulse Rate 88 73 Respiratory 20 20 Rate Blood Pressure 138/73 143/76 O2 Sat by Pulse 100 99 Oximetry Medical Decision Making - Lab Data Result diagrams: 08/25/22 14:36 08/25/22 14:36 <Eric Mcnair - Last Filed: 08/25/22 17:36> - Lab Data Result diagrams: 08/25/22 17:53 08/25/22 14:36 <Almaz Gudino - Last Filed: 08/25/22 18:32> - Medical Decision Making EKG was interpreted by myself shows a sinus rhythm at 80 bpm HI interval 150 QRS is 96 QT interval 364 QTC is 389. Patient's EKG shows no ST segment elevation or depression. Was pt. sent in by a medical professional or institution ([facility], [employer], urgent care, hospital, or [place] health care facility...) When possible be specific @ -No Did you speak to anyone other than the patient for history (EMS, parent, family, police, friend...)? What history was obtained from this source @ -No Did you review nursing and triage notes (agree or disagree)? Why? @ -I reviewed and agree with nursing and triage notes Were old charts reviewed (outside hosp., previous admission, EMS record, old EKG, old radiological studies, urgent care reports/EKG's, [place] health care facility records)? Report findings @ -No old charts were reviewed Differential Diagnosis (chest pain, altered mental status, abdominal pain women, abdominal pain men, vaginal bleeding, weakness, fever, dyspnea, syncope, headache, dizziness, GI bleed, back pain, seizure, CVA, palpatations, mental health, musculoskeletal)? @ -Differential Dyspnea: Coronary syndrome, arrhythmia, tamponade, asthma, COPD, pulmonary embolism, pneumonia, pneumothorax, pulmonary effusion, anaphylaxis, diabetic ketoacidosis, flailed chest, pulmonary contusion, diaphragmatic rupture, anemia, n euromuscular, this is not meant to be an all-inclusive list. EKG interpreted by me (3pts min.). @ -As above X-rays interpreted by me (1pt min.). @ -Chest x-ray showed slight pleural effusions CT interpreted by me (1pt min.). @ -CT of the chest showed no PE but did have bilateral small pleural effusions U/S interpreted by me (1pt. min.). @ -None done What testing was considered but not performed or refused? (CT, X-rays, U/S, l abs)? Why? @ -None What meds were considered but not given or refused? Why? @ -None Did you discuss the management of the patient with other professionals (professionals i.e. [facility], [employer], lab, RT, psych nurse, social group worker, train planner, teacher, lodge officer, sample case porter)? Give summary @ -I spoke with Dr. Jackson he agreed to admit the patient I admitted the patient and wrote admitting orders Was smoking cessation discussed for >3mins.? @ -No Was critical care preformed (if so, how long)? @ -No Were there social determinants of health that impacted care today? How? (Homelessness, low income, unemployed, alcoholism, drug addiction, transportation, low edu. Level, literacy, decrease access to med. care, m[facility], rehab)? @ -No Was there de-escalation of care discussed even if they declined (Discuss DNR or withdrawal of care, Hospice)? DNR status @ -No What co-morbidities impacted this encounter? (DM, HTN, Smoking, COPD, CAD, Can cer, CVA, ARF, Chemo, Hep., AIDS, mental health diagnosis, sleep apnea, morbid obesity)? @ -None Was patient admitted / discharged? Hospital course, mention meds given and route, prescriptions, significant lab abnormalities, going to OR and other pertinent info. @ -The patient's Hemoccult was 7.4 which is significantly lower than his last h emoglobin on record. Patient states he still having a little hematuria. Patient will be kept overnight admitted to Dr. Jackson and repeat CBCs will be done Undiagnosed new problem with uncertain prognosis? @ -No Drug Therapy requiring intensive monitoring for toxicity (Heparin, Nitro, Insulin, Cardizem)? @ -No Were any procedures done? @ -No Diagnosis/symptom? @ -anemia Acute, or Chronic, or Acute on Chronic? @ -Acute Uncomplicated (without systemic symptoms) or Complicated (systemic symptoms)? @ -Complicated Side effects of treatment? @ -No Exacerbation, Progression, or Severe Exacerbation? @ -No Poses a threat to life or bodily function? How? (Chest pain, USA, SC, pneumonia, PE, COPD, DKA, ARF, appy, cholecystitis, CVA, Diverticulitis, Homicidal, Suicidal, threat to staff... and all critical care pts) @ -Yes this can lead to significant hypoxia and end organ dysfunction (Eric Mcnair) - Lab Data Lab Results 08/25/22 08/25/22 08/25/22 Range/Units 14:36 14:36 14:36 WBC 8.5 (3.8-10.6) k/uL RBC 2.34 L (4.30-5.90) m/uL Hgb 7.4 L (13.0-17.5) gm/dL Hct 23.1 L (39.0-53.0) % MCV 98.6 (80.0-100.0) fL MCH 31.7 (25.0-35.0) pg MCHC 32.2 (31.0-37.0) g/dL RDW 13.1 (11.5-15.5) % Plt Count 284 (150-450) k/uL MPV 8.0 Neutrophils % 79 % Lymphocytes % 11 % Monocytes % 6 % Eosinophils % 2 % Basophils % 0 % Neutrophils # 6.7 (1.3-7.7) k/uL Lymphocytes # 1.0 (1.0-4.8) k/uL Monocytes # 0.5 (0-1.0) k/uL Eosinophils # 0.2 (0-0.7) k/uL Basophils # 0.0 (0-0.2) k/uL Hypochromasia Moderate PT (9.0-12.0) sec INR (<1.2) APTT (22.0-30.0) sec D-Dimer (<0.60) mg/L FEU Sodium 133 L (137-145) mmol/L Potassium 4.4 (3.5-5.1) mmol/L Chloride 105 (98-107) mmol/L Carbon Dioxide 19 L (22-30) mmol/L Anion Gap 9 mmol/L BUN 23 H (9-20) mg/dL Creatinine 1.00 (0.66-1.25) mg/dL Est GFR (CKD-EPI)AfAm 78 (>60 ml/min/1.73 sqM) Est GFR (CKD-EPI)NonAf 67 (>60 ml/min/1.73 sqM) Glucose 100 H (74-99) mg/dL Calcium 8.0 L (8.4-10.2) mg/dL Total Bilirubin 0.5 (0.2-1.3) mg/dL AST 29 (17-59) U/L ALT 20 (4-49) U/L Alkaline Phosphatase 84 (38-126) U/L Troponin I (0.000-0.034) ng/mL NT-Pro-B Natriuret Pep 788 pg/mL Total Protein 5.8 L (6.3-8.2) g/dL Albumin 3.1 L (3.5-5.0) g/dL Influenza Type A (PCR) Not Detected (Not Detectd) Influenza Type B (PCR) Not Detected (Not Detectd) RSV (PCR) Not Detected (Not Detectd) SARS-CoV-2 (PCR) Not Detected (Not Detectd) 08/25/22 08/25/22 Range/Units 14:36 14:36 WBC (3.8-10.6) k/uL RBC (4.30-5.90) m/uL Hgb (13.0-17.5) gm/dL Hct (39.0-53.0) % MCV (80.0-100.0) fL MCH (25.0-35.0) pg MCHC (31.0-37.0) g/dL RDW (11.5-15.5) % Plt Count (150-450) k/uL MPV Neutrophils % % Lymphocytes % % Monocytes % % Eosinophils % % Basophils % % Neutrophils # (1.3-7.7) k/uL Lymphocytes # (1.0-4.8) k/uL Monocytes # (0-1.0) k/uL Eosinophils # (0-0.7) k/uL Basophils # (0-0.2) k/uL Hypochromasia PT 10.4 (9.0-12.0) sec INR 1.0 (<1.2) APTT 23.2 (22.0-30.0) sec D-Dimer 1.50 H (<0.60) mg/L FEU Sodium (137-145) mmol/L Potassium (3.5-5.1) mmol/L Chloride (98-107) mmol/L Carbon Dioxide (22-30) mmol/L Anion Gap mmol/L BUN (9-20) mg/dL Creatinine (0.66-1.25) mg/dL Est GFR (CKD-EPI)AfAm (>60 ml/min/1.73 sqM) Est GFR (CKD-EPI)NonAf (>60 ml/min/1.73 sqM) Glucose (74-99) mg/dL Calcium (8.4-10.2) mg/dL Total Bilirubin (0.2-1.3) mg/dL AST (17-59) U/L ALT (4-49) U/L Alkaline Phosphatase (38-126) U/L Troponin I <0.012 (0.000-0.034) ng/mL NT-Pro-B Natriuret Pep pg/mL Total Protein (6.3-8.2) g/dL Albumin (3.5-5.0) g/dL Influenza Type A (PCR) (Not Detectd) Influenza Type B (PCR) (Not Detectd) RSV (PCR) (Not Detectd) SARS-CoV-2 (PCR) (Not Detectd) Disposition Time of Disposition: 17:44 <Eric Mcnair - Last Filed: 08/25/22 17:36> <Almaz Gudino - Last Filed: 08/25/22 18:32> Clinical Impression: Anemia, Dyspnea Disposition: ADMITTED IP TO THIS HOSP
[2022-08-25 15:00] LABS: Basophils % (A) 0 %; Eosinophils # (A) 0.2 k/uL (0-0.7); Eosinophils % (A) 2 %; HCT 23.1 % (39.0-53.0); HGB 7.4 gm/dL (13.0-17.5); Hypochromasia Moderate; Lymphocytes % (A) 11 %; MCH 31.7 pg (25.0-35.0); MCHC 32.2 g/dL (31.0-37.0); MCV 98.6 fL (80.0-100.0); Monocytes # (A) 0.5 k/uL (0-1.0); Monocytes % (A) 6 %; Neutrophils # (A) 6.7 k/uL (1.3-7.7); Neutrophils % (A) 79 %; Platelet Count 284 k/uL (150-450); RBC 2.34 m/uL (4.30-5.90); RDW 13.1 % (11.5-15.5); WBC 8.5 k/uL (3.8-10.6)
[2022-08-25 15:18] LABS: Partial Thromboplastin Time 23.2 sec (22.0-30.0); Prothrombin Time 10.4 sec (9.0-12.0)
[2022-08-25 15:27] LABS: ALT 20 U/L (4-49); AST 29 U/L (17-59); African American GFR (CKD) 78 (>60 ml/min/1.73 sqM); Albumin 3.1 g/dL (3.5-5.0); Alkaline Phosphatase 84 U/L (38-126); Anion Gap 9 mmol/L; Blood Urea Nitrogen 23 mg/dL (9-20); Carbon Dioxide 19 mmol/L (22-30); Chloride 105 mmol/L (98-107); Glucose 100 mg/dL (74-99); Non-African American GFR(CKD) 67 (>60 ml/min/1.73 sqM); Potassium 4.4 mmol/L (3.5-5.1); Sodium 133 mmol/L (137-145); Total Bilirubin 0.5 mg/dL (0.2-1.3); Total Protein 5.8 g/dL (6.3-8.2)
--- NOTE | 2022-08-25 15:30 | XR ---
EXAMINATION TYPE: XR chest 2V DATE OF EXAM: 08/25/2022 COMPARISON: 09/09/2018 HISTORY: Shortness of breath TECHNIQUE: Frontal and lateral views of the chest are obtained. FINDINGS: Scattered senescent parenchymal changes noted. Hyperinflation compatible with COPD. Small right-sided pleural effusion. Increased density right upper lobe may reflect atelectasis or dev eloping infiltrate. Biapical scarring. Tenting of the right hemidiaphragm. Heart size is stable. Mediastinal structures are stable and grossly unremarkable. No evidence for hilar prominence. Degenerative changes dorsal spine. IMPRESSION: 1. Small right-sided pleural effusion. Increased density right upper lobe may reflect atelectasis or developing infiltrate.
[2022-08-25 15:32] LABS: NT-Pro-B-Type Natriuretic Pept 788 pg/mL
--- NOTE | 2022-08-25 16:47 | CT ---
EXAMINATION TYPE: CT chest angio for PE CT DLP: 247.6 mGycm, Automated exposure control for dose reduction was used. DATE OF EXAM: 08/25/2022 4:39 PM COMPARISON: Chest radiograph from same day. CT 03/05/2021, 06/05/2021. CLINICAL INDICATION:Male, 87 years old with history of Shortness of breath and elevated d-dimer; SOB, elevated d-dimer TECHNIQUE/CONTRAST: CTA scan of the thorax is performed with IV Contrast, patient injected with 100 mL of Isovue 370, pul monary embolism protocol. MIP images are created and reviewed these are created on a separate workst at[employer].. FINDINGS: Pulmonary Artery: There is no evidence for a filling defect within the pulmonary vasculature to sugge st acute pulmonary embolism. The pulmonary artery is of normal size. Lungs/Pleura: No focal consolidation or pneumothorax. There is bilateral small pleural effusions. Ret icular opacities predominantly along the periphery are noted throughout the lungs. Right middle lobe 5 mm pulmonary nodule. Calcified granuloma in the right middle lobe. Apical scarring is present bilat erally. Airway: Large airways are patent. Heart: Heart is within normal limits for size. Calcifications of the coronary arteries and aortic claudia ve leaflets. Vasculature: No evidence of aortic aneurysm. Mediastinum: No gross evidence of adenopathy. Musculoskeletal: Multiple subacute rib fractures most pronounced in the left no acute fractures defin itively visualized. Similar fractures are incompletely fused. Soft Tissues: Unremarkable. Lower neck: No significant findings. Upper Abdomen: Scattered calcified granulomas throughout the spleen. IMPRESSION: 1. No evidence of pulmonary embolism. 2. Nonspecific interstitial lung changes which could represent sequela prior infection versus interst itial lung disease. 3. 6 trace to small bilateral pleural effusions. Which have increased from prior. 4. 5 mm right middle lobe pulmonary nodule is which is stable back to 03/05/2021.
[2022-08-25] MEDS ORDERED: NALOXONE 0.4 MG/ML 1 ML VIAL IV PRN (17:46)
[2022-08-25 18:07] LABS: Basophils % (A) 0 %; Eosinophils # (A) 0.2 k/uL (0-0.7); Eosinophils % (A) 3 %; HCT 21.2 % (39.0-53.0); Hypochromasia Slight; Lymphocytes # (A) 1.4 k/uL (1.0-4.8); Lymphocytes % (A) 17 %; MCH 31.2 pg (25.0-35.0); MCHC 32.6 g/dL (31.0-37.0); MCV 95.8 fL (80.0-100.0); Mean Platelet Volume 8.1; Monocytes # (A) 0.4 k/uL (0-1.0); Monocytes % (A) 5 %; Neutrophils # (A) 6.3 k/uL (1.3-7.7); Neutrophils % (A) 74 %; Platelet Count 273 k/uL (150-450); RBC 2.21 m/uL (4.30-5.90); RDW 13.2 % (11.5-15.5); WBC 8.5 k/uL (3.8-10.6)
[2022-08-25 18:11] LABS: HGB 6.9 gm/dL (13.0-17.5)
[2022-08-25 18:45] LABS: Polychromasia Present
[2022-08-25] MEDS ORDERED: ACETAMINOPHEN TAB 500 MG TAB PO PRN (20:27)
[2022-08-25] MEDS ORDERED: ATORVASTATIN 20 MG TAB PO SCH (21:00)
[2022-08-25] MEDS: TOPIRAMATE 25 MG TAB PO SCH (21:34)
[2022-08-26] MEDS ORDERED: PANTOPRAZOLE 40 MG TABLET PO SCH (07:30)
[2022-08-26 08:00] LABS: Basophils % (A) 0 %; Eosinophils # (A) 0.4 k/uL (0-0.7); Eosinophils % (A) 5 %; HCT 25.2 % (39.0-53.0); HGB 8.2 gm/dL (13.0-17.5); Hypochromasia Slight; Lymphocytes # (A) 1.5 k/uL (1.0-4.8); Lymphocytes % (A) 20 %; MCH 30.6 pg (25.0-35.0); MCHC 32.4 g/dL (31.0-37.0); MCV 94.3 fL (80.0-100.0); Mean Platelet Volume 8.2; Monocytes # (A) 0.5 k/uL (0-1.0); Monocytes % (A) 7 %; Neutrophils # (A) 4.9 k/uL (1.3-7.7); Neutrophils % (A) 67 %; Platelet Count 258 k/uL (150-450); RBC 2.67 m/uL (4.30-5.90); RDW 13.6 % (11.5-15.5); WBC 7.4 k/uL (3.8-10.6)
[2022-08-26] MEDS: TOPIRAMATE 25 MG TAB PO SCH (08:29)
[2022-08-26] MEDS ORDERED: LORATADINE 10 MG TAB PO SCH (09:00)
[2022-08-26] MEDS ORDERED: ASPIRIN 81 MG PO SCH (09:00)
--- NOTE | 2022-08-26 13:00 | P.CNPUL ---
History of Present Illness Consult date: 08/26/22 Requesting physician: Lefty Jackson Jr Reason for consult: dyspnea, abnormal CXR/CT Chief complaint: Shortness of breath History of present illness: This is a very pleasant 87-year-old male patient with a known history of benign prostatic hyperplasia, coronary artery disease, essential tremors, gastroesophageal reflux disease, hyperlipidemia, chronic back pain, previous bladder cancer, ALLERGIC rhinitis, mild intermittent chronic bronchial asthma. He was being seen in our office yesterday with complaints of a 1 week history of increasing shortness of breath and was found to have cyanotic fingers in quite dyspneic and referred here to the emergency room. Chest x-ray revealed a small right-sided pleural effusion. Increased density in the right upper lobe reflecting atelectasis versus early infiltrate. CT angiogram ruled out pulmonary embolism. There is some nonspecific interstitial lung changes representing sequela of prior infection versus interstitial lung disease. Trace bilateral effusions. 5 mm right upper lobe nodule stable since February 2021. White count 7.4. Hemoglobin 6.9. Improved to 8.2 following 1 unit of packed red blood cells. Sodium 133. Potassium 4.4. Bicarb 19. BUN 23. Creatinine 1.0. Glucose 100. AST 29. ALT 20. Troponin negative times one. ProBNP 788. We are seeing the patient in consultation on the regular medical floor. He is currently sitting up in bed. Awake and alert in no acute distress. Oxygen saturation in the high 90s on room air. He is afebrile. Hemodynamically stable. He is feeling better today compared to yesterday. He states he has been having issues with hematuria since November 2021 and was planning for furthe r workup with Dr. Grajeda however the patient has been busy with family functions. His history of bladder cancer was approximately 20 years ago. Review of Systems REVIEW OF SYSTEMS: CONSTITUTIONAL: Denies any recent significant weight loss or weight gain. EYES: Denies change in vision. EARS, NOSE, MOUTH, THROAT: Denies headaches, denies sore throat. CARDIOVASCULAR: Denies chest pain, palpitations or syncopal episodes. RESPIRATORY: Positive for shortness of breath, no cough, congestion or hemoptysis. GASTROINTESTINAL: Denies change in appetite, denies abdominal pain GENITOURINARY: Denies hematuria, denies infections. MUSKULOSKELETAL: Denies pain, denies swelling. INTEGUMENTARY: Denies rash, denies eczema. NEUROLOGICAL: Denies recent memory loss, no recent seizure activity. PSYCHIATRIC: Denies anxiety, denies depression. HEMATOLOGIC/LYMPHATIC: Denies anemia, denies enlarged lymph nodes. Past Medical History Past Medical History: Cancer, Chest Pain / Angina, COPD, GERD/Reflux, Hypertension, Osteoarthritis (OA), Pneumonia, Seizure Disorder, Vascular Disorder Additional Past Medical History / Comment(s): hx hypoglycemia. current - recurring bladder cancer for past 20 years. grand mal seizure age 30 none since- pt [facility] attributed to low blood sugars, off balance at times, hand tremors, freq.night urination History of Any Multi-Drug Resistant Organisms: None Reported Past Surgical History: Back Surgery, Bladder Surgery, Orthopedic Surgery Additional Past Surgical History / Comment(s): rt rotator cuff, haley cataract surgery , skin cancer, Past Anesthesia/Blood Transfusion Reactions: No Reported Reaction Past Psychological History: No Psychological Hx Reported Smoking Status: Former smoker Past Alcohol Use History: Daily Additional Past Alcohol Use History / Comment(s): quit smoking early Past Drug Use History: None Reported - Past Family History Brother(s) Family Medical History: COPD Sister(s) Family Medical History: COPD Father Family Medical History: Eye Disorder Additional Family Medical History / Comment(s): macular degeneration Mother Family Medical History: CVA/TIA, Dementia, Neurologic Disorder Additional Family Medical History / Comment(s): parkinsons Medications and Allergies Home Medications Medication Instructions Recorded Confirmed Type Aspirin 81 mg PO DAILY 07/31/14 08/25/22 History Omeprazole 20 mg PO DAILY 07/31/14 08/25/22 History Atorvastatin [Lipitor] 20 mg PO HS #30 tab 09/28/18 08/25/22 Rx Acetaminophen Tab [Tylenol] 1,000 mg PO Q4H PRN 08/25/22 08/25/22 History Albuterol Sulfate [Ventolin HFA] 2 puff INHALATION RT-QID PRN 08/25/22 08/25/22 History Budesonide [Pulmicort Flexhaler] 1 puff INHALATION RT-BID 08/25/22 08/25/22 History Loratadine [Claritin] 10 mg PO DAILY 08/25/22 08/25/22 History Topiramate [Topamax] 25 mg PO BID 08/25/22 08/25/22 History Vit C/E/Zn/Coppr/Lutein/Zeaxan 1 cap PO DAILY 08/25/22 08/25/22 History [Preservision Areds 2 Softgel] Multivit/Iron Sulf/Folic Acid 1 each PO DAILY #30 tab 08/26/22 Rx [Multivitamin with Iron] Allergies Allergy/AdvReac Type Severity Reaction Status Date / Time adhesive tape Allergy Rash/Hives Verified 08/25/22 16:32 latex Allergy Rash/Hives Verified 08/25/22 16:32 codeine AdvReac Nausea & Verified 08/25/22 16:32 Vomiting Physical Exam Vitals: Vital Signs Temp Pulse Pulse Resp BP BP Pulse Ox 08/26/22 12:16 98 15 08/26/22 07:21 96.8 F L 84 15 122/58 99 08/26/22 03:08 98 F 73 16 136/70 99 08/26/22 02:00 98.3 F 81 17 131/63 99 08/26/22 00:04 98.0 F 79 16 123/66 99 08/25/22 23:44 98.1 F 78 16 116/64 99 08/25/22 23:05 97.9 F 88 17 116/57 08/25/22 20:00 97.9 F 91 17 132/64 99 08/25/22 15:23 73 20 143/76 99 08/25/22 14:40 97.3 F L 08/25/22 14:03 88 20 138/73 100 Intake and Output 08/25/22 08/26/22 08/26/22 22:59 06:59 14:59 Intake Total 200 310 Output Total 800 1000 Balance -600 -690 Intake: Oral 200 Blood Product 310 Rc As-1 Unit 310 [id number] Output: Urine 800 1000 Other: Voiding Method Indwelling Catheter Weight 68.039 kg GENERAL EXAM: Alert, oriented, very pleasant 87-year-old male, on room air,, comfortable in no apparent distress. HEAD: Normocephalic. EYES: Normal reaction of pupils, equal size. NOSE: Clear with pink turbinates. THROAT: No erythema or exudates. NECK: No masses, no JVD. CHEST: No chest wall deformity. LUNGS: Equal air entry with faint crackles in the posterior bases. CVS: S1 and S2 normal with no audible murmur, regular rhythm. ABDOMEN: No hepatosplenomegaly, normal bowel sounds, no guarding or rigidity. SPINE: No scoliosis or deformity SKIN: No rashes CENTRAL NERVOUS SYSTEM: No focal deficits, tone is normal in all 4 extremities. EXTREMITIES: There is no peripheral edema. No clubbing, no cyanosis. Peripheral pulses are intact. Results - Laboratory Findings CBC and BMP: 08/26/22 07:40 08/25/22 14:36 PT/INR, D-dimer PT 10.4 sec (9.0-12.0) 08/25/22 14:36 INR 1.0 (<1.2) 08/25/22 14:36 D-Dimer 1.50 mg/L FEU (<0.60) H 08/25/22 14:36 Abnormal lab findings: Abnormal Labs 08/25/22 08/25/22 08/25/22 14:36 14:36 14:36 RBC 2.34 L Hgb 7.4 L Hct 23.1 L D-Dimer 1.50 H Sodium 133 L Carbon Dioxide 19 L BUN 23 H Glucose 100 H Calcium 8.0 L Total Protein 5.8 L Albumin 3.1 L Crossmatch 08/25/22 08/25/22 08/26/22 17:53 18:25 07:40 RBC 2.21 L 2.67 L Hgb 6.9 L* 8.2 L Hct 21.2 L 25.2 L D-Dimer Sodium Carbon Dioxide BUN Glucose Calcium Total Protein Albumin Crossmatch See Detail - Diagnostic Findings Chest x-ray: image reviewed CT scan - chest: image reviewed Assessment and Plan Assessment: Dyspnea in a patient found to be anemic with a hemoglobin of 6.9. Small bilateral pleural effusions Acute anemia status post 1 unit of packed red blood cells. Hemoglobin 8.2 History of hematuria since November 2021 History of bladder cancer passing 20 years ago History of mild intermittent chronic bronchial asthma Hyperlipidemia ALLERGIC rhinitis Gastroesophageal reflux disease Plan: The patient was seen and evaluated Chest x-ray, CT chest, labs and medications reviewed Improved following one unit of packed blood cells Consult urology regarding hematuria Obtain echocardiogram Stable and on room air We will continue to follow and make further recommendations based on his clinical status I have personally seen and examined the patient, performed the documentation and the assessment and plan as written. Number of minutes spent on the visit: 20.
[2022-08-26] MEDS ORDERED: ALBUTEROL NEBULIZED 2.5 MG/3 ML INHALATION PRN (13:01)
[2022-08-26 13:46] VITALS: BP 106/54; PULSE 87; RESP 16; TEMP 97.6
--- NOTE | 2022-08-26 13:54 | P.HPIM ---
History of Present Illness H&P Date: 08/26/22 Chief Complaint: Hematuria, anemia, dyspnea History of Physical and Discharge Summary: This is a pleasant 87-year-old gentleman with past medical history significant for bladder cancer greater than 20 years ago-treated, benign prostatic hyperplasia ,CAD, gastroesophageal reflux disease, hyperlipidemia, essential tremors, chronic back pain, intermittent bronchial asthma and multiple other medical issues presented to his tipple mechanic, Dr. Ozuna's office yesterday with complaints of increased shortness of breath, fatigue, cyanotic digits and referred to the ER. Afebrile, normal WBC. D-dimer 1.5, chest x-ray noted, CTA reported no pulmonary embolism, nonspecific interstitial lung changes, small bilateral pleural effusions. BNP normal. Patient reports he had a procedure with Dr. Grajeda last week on Thursday , Yoder had been placed with expected hematuria. Patient reports he actually had delayed this procedure due to family obligations/traveling and had hematuria for multiple weeks prior to the procedure. Baseline hemoglobin 11 to 12. On admission hemoglobin 7.4 continue to drop to 6.9. Receive 1 unit of packed RBCs currently up to 8.2. Platelets 258. Denies chest pain, palpitations or shortness of breath. Maintaining O2 sat s in the high 90s on room air. Yoder catheter with hematuria without clots. BUN 67, BUN 23, creatinine 1. Denies nausea, vomiting or abdominal pain. Denies lightheadedness dizziness or focal deficits. Denies fever ,chills or sweats. Sodium 133, potassium 4.4, bicarb 19, glucose 100, albumin 3.1, total protein 5.8. Review of Systems ROS Statement: Those systems with pertinent positive or pertinent negative responses have been documented in the HPI. ROS Other: All systems not noted in ROS Statement are negative. Past Medical History Past Medical History: Cancer, Chest Pain / Angina, COPD, GERD/Reflux, Hypertension, Osteoarthritis (OA), Pneumonia, Seizure Disorder, Vascular Dis order Additional Past Medical History / Comment(s): hx hypoglycemia. current - recurring bladder cancer for past 20 years. grand mal seizure age 30 none since- pt states of [facility] attributed to low blood sugars, off balance at times, hand tremors, freq.night urination History of Any Multi-Drug Resistant Organisms: None Reported Past Surgical History: Back Surgery, Bladder Surgery, Orthopedic Surgery Additional Past Surgical History / Comment(s): rt rotator cuff, haley cataract surgery , skin cancer, Past Anesthesia/Blood Transfusion Reactions: No Reported Reaction Past Psychological History: No Psychological Hx Reported Smoking Status: Former smoker Past Alcohol Use History: Daily Additional Past Alcohol Use History / Comment(s): quit smoking early Past Drug Use History: None Reported - Past Family History Brother(s) Family Medical History: COPD Sister(s) Family Medical History: COPD Father Family Medical History: Eye Disorder Additional Family Medical History / Comment(s): macular degeneration Mother Family Medical History: CVA/TIA, Dementia, Neurologic Disorder Additional Family Medical History / Comment(s): parkinsons Medications and Allergies Home Medications Medication Instructions Recorded Confirmed Type Aspirin 81 mg PO DAILY 07/31/14 08/25/22 History Omeprazole 20 mg PO DAILY 07/31/14 08/25/22 History Atorvastatin [Lipitor] 20 mg PO HS #30 tab 09/28/18 08/25/22 Rx Acetaminophen Tab [Tylenol] 1,000 mg PO Q4H PRN 08/25/22 08/25/22 History Albuterol Sulfate [Ventolin HFA] 2 puff INHALATION RT-QID PRN 08/25/22 08/25/22 History Budesonide [Pulmicort Flexhaler] 1 puff INHALATION RT-BID 08/25/22 08/25/22 History Loratadine [Claritin] 10 mg PO DAILY 08/25/22 08/25/22 History Topiramate [Topamax] 25 mg PO BID 08/25/22 08/25/22 History Vit C/E/Zn/Coppr/Lutein/Zeaxan 1 cap PO DAILY 08/25/22 08/25/22 History [Preservision Areds 2 Softgel] Multivit/Iron Sulf/Folic Acid 1 each PO DAILY #30 tab 08/26/22 Rx [Multivitamin with Iron] Allergies Allergy/AdvReac Type Severity Reaction Status Date / Time adhesive tape Allergy Rash/Hives Verified 08/25/22 16:32 latex Allergy Rash/Hives Verified 08/25/22 16:32 codeine AdvReac Nausea & Verified 08/25/22 16:32 Vomiting Physical Exam Vitals: Vital Signs Temp Pulse Pulse Resp BP BP Pulse Ox 08/26/22 12:16 98 15 08/26/22 07:21 96.8 F L 84 15 122/58 99 08/26/22 03:08 98 F 73 16 136/70 99 08/26/22 02:00 98.3 F 81 17 131/63 99 08/26/22 00:04 98.0 F 79 16 123/66 99 08/25/22 23:44 98.1 F 78 16 116/64 99 08/25/22 23:05 97.9 F 88 17 116/57 08/25/22 20:00 97.9 F 91 17 132/64 99 08/25/22 15:23 73 20 143/76 99 08/25/22 14:40 97.3 F L 08/25/22 14:03 88 20 138/73 100 Intake and Output 08/25/22 08/26/22 08/26/22 22:59 06:59 14:59 Intake Total 200 310 Output Total 800 1000 Balance -600 -690 Intake: Oral 200 Blood Product 310 Rc As-1 Unit 310 [id number] Output: Urine 800 1000 Other: Voiding Method Indwelling Catheter Weight 68.039 kg PHYSICAL EXAM: VITAL SIGNS: As above GENERAL: Pleasant, Alert and oriented 3, sitting up in bed, no acute distress. HEENT: Normocephalic Conjunctivae normal. eyes normal. NECK: Supple, No JVD. No thyroid enlargement. No LNs CARDIOVASCULAR: S1, S2 regular.. No murmur RESPIRATION: Unlabored, equal air entry, fine basilar crackles. ABDOMEN: Soft, nondistended, nontender . No guarding. no masses palpable. No ascites, No hepatosplenomegaly.Bowel sounds heard. LEGS: No edema. no swelling PSYCHIATRY: Alert and oriented X3, mood and affect normal. NERVOUS SYSTEM: Cranial N 2-12 grossly normal. No focal deficits. Strength and sensation grossly intact. Skin: Warm and dry, no rash Results CBC & Chem 7: 08/26/22 07:40 08/25/22 14:36 Labs: Abnormal Lab Results - Last 24 Hours (Table) 08/25/22 08/25/22 08/25/22 Range/Units 14:36 14:36 14:36 RBC 2.34 L (4.30-5.90) m/uL Hgb 7.4 L (13.0-17.5) gm/dL Hct 23.1 L (39.0-53.0) % D-Dimer 1.50 H (<0.60) mg/L FEU Sodium 133 L (137-145) mmol/L Carbon Dioxide 19 L (22-30) mmol/L BUN 23 H (9-20) mg/dL Glucose 100 H (74-99) mg/dL Calcium 8.0 L (8.4-10.2) mg/dL Total Protein 5.8 L (6.3-8.2) g/dL Albumin 3.1 L (3.5-5.0) g/dL Crossmatch 08/25/22 08/25/22 08/26/22 Range/Units 17:53 18:25 07:40 RBC 2.21 L 2.67 L (4.30-5.90) m/uL Hgb 6.9 L* 8.2 L (13.0-17.5) gm/dL Hct 21.2 L 25.2 L (39.0-53.0) % D-Dimer (<0.60) mg/L FEU Sodium (137-145) mmol/L Carbon Dioxide (22-30) mmol/L BUN (9-20) mg/dL Glucose (74-99) mg/dL Calcium (8.4-10.2) mg/dL Total Protein (6.3-8.2) g/dL Albumin (3.5-5.0) g/dL Crossmatch See Detail Thrombosis Risk Factor Assmnt - Choose All That Apply Any of the Below Risk Factors Present?: No Each Risk Factor Represents 3 Points: Age 75 years or older Other congenital or acquired thrombophilia - If yes, enter type in comment: No Thrombosis Risk Factor Assessment Total Risk Factor Score: 3 Thrombosis Risk Factor Assessment Level: Moderate Risk Assessment and Plan Assessment: Acute blood loss anemia in a patient, reporting urology procedure last week per Dr. Grajeda; Yoder catheter placed at that time. Acute on chronic hematuria.Hematuria without clots. Possible iron deficient anemia, labs pending. Status post transfusion of 1 unit packed RBCs. History of bladder cancer greater than 20 years ago. Dyspnea secondary to the above. Echo unable to be obtained today, to be arranged outpatient as per PCP. Gastroesophageal reflux disease History of nicotine dependence Plan: Continue on current medication regime ,monitoring and symptomatic treatment. Pulmonary and neurology consults ordered, recommendations pending. PPI for GI prophylaxis. JOSE L multani. Cleared by urology for discharge stating patient actually has an appointment tomorrow with Dr. Gonsalez as previously scheduled. Patient will be discharged home today in a stable condition with guarded prognosis pending final DC recommendations and clearance per pulmonary. Echo unable to be obtained today, to be arranged outpatient as per PCP. Discharge Medication List Aspirin 81 mg PO DAILY 07/31/14 [History] Omeprazole 20 mg PO DAILY 07/31/14 [History] Atorvastatin [Lipitor] 20 mg PO HS #30 tab 09/28/18 [Rx] Acetaminophen Tab [Tylenol] 1,000 mg PO Q4H PRN 08/25/22 [History] Albuterol Sulfate [Ventolin HFA] 2 puff INHALATION RT-QID PRN 08/25/22 [History] Budesonide [Pulmicort Flexhaler] 1 puff INHALATION RT-BID 08/25/22 [History] Loratadine [Claritin] 10 mg PO DAILY 08/25/22 [History] Topiramate [Topamax] 25 mg PO BID 08/25/22 [History] Vit C/E/Zn/Coppr/Lutein/Zeaxan [Preservision Areds 2 Softgel] 1 cap PO DAILY 08/25/22 [History] Multivit/Iron Sulf/Folic Acid [Multivitamin with Iron] 1 each PO DAILY #30 tab 08/26/22 [Rx] The impression and plan of care has been dictated as directed. : I performed a history and examination of this patient, discussed the same with the dictator. I agree with the dictator's note ,documented as a scribe. Any additional findings or plans will be noted.
--- NOTE | 2022-08-26 14:15 | P.GSCN ---
History of Present Illness Consult date: 08/26/22 Reason for Consult: Gross hematuria, History of present illness: This is an 87-year-old male that presented to the hospital with shortness of b reath. Underwent a CT PE protocol showed no evidence of PE. He did undergo a transurethral resection of a bladder tumor, with a right orchiectomy on August [address] Grajeda. He is been having intermittent gross hematuria since his surgery his hemoglobin was 6.8 this morning, responded to 8.2 following 1 unit. Urine in the Yoder is light red no clots draining without any issues. He denies any issues with blood clots or catheter obstruction. He indicated he has a follow- up appointment with Dr. Sanchez tomorrow. Past Medical History Past Medical History: Cancer, Chest Pain / Angina, COPD, GERD/Reflux, Hypertension, Osteoarthritis (OA), Pneumonia, Seizure Disorder, Vascular Disorder Additional Past Medical History / Comment(s): hx hypoglycemia. current - recurring bladder cancer for past 20 years. grand mal seizure age 30 none since- pt states [facility] attributed to low blood sugars, off balance at times, hand tremors, freq.night urination History of Any Multi-Drug Resistant Organisms: None Reported Past Surgical History: Back Surgery, Bladder Surgery, Orthopedic Surgery Additional Past Surgical History / Comment(s): rt rotator cuff, haley cataract surgery , skin cancer, Past Anesthesia/Blood Transfusion Reactions: No Reported Reaction Past Psychological History: No Psychological Hx Reported Smoking Status: Former smoker Past Alcohol Use History: Daily Additional Past Alcohol Use History / Comment(s): quit smoking early 30's Past Drug Use History: None Reported - Past Family History Brother(s) Family Medical History: COPD Sister(s) Family Medical History: COPD Father Family Medical History: Eye Disorder Additional Family Medical History / Comment(s): macular degeneration Mother Family Medical History: CVA/TIA, Dementia, Neurologic Disorder Additional Family Medical History / Comment(s): parkinsons Medications and Allergies Home Medications Medication Instructions Recorded Confirmed Type Aspirin 81 mg PO DAILY 07/31/14 08/25/22 History Omeprazole 20 mg PO DAILY 07/31/14 08/25/22 History Atorvastatin [Lipitor] 20 mg PO HS #30 tab 09/28/18 08/25/22 Rx Acetaminophen Tab [Tylenol] 1,000 mg PO Q4H PRN 08/25/22 08/25/22 History Albuterol Sulfate [Ventolin HFA] 2 puff INHALATION RT-QID PRN 08/25/22 08/25/22 History Budesonide [Pulmicort Flexhaler] 1 puff INHALATION RT-BID 08/25/22 08/25/22 History Loratadine [Claritin] 10 mg PO DAILY 08/25/22 08/25/22 History Topiramate [Topamax] 25 mg PO BID 08/25/22 08/25/22 History Vit C/E/Zn/Coppr/Lutein/Zeaxan 1 cap PO DAILY 08/25/22 08/25/22 History [Preservision Areds 2 Softgel] Multivit/Iron Sulf/Folic Acid 1 each PO DAILY #30 tab 08/26/22 Rx [Multivitamin with Iron] Allergies Allergy/AdvReac Type Severity Reaction Status Date / Time adhesive tape Allergy Rash/Hives Verified 08/25/22 16:32 latex Allergy Rash/Hives Verified 08/25/22 16:32 codeine AdvReac Nausea & Verified 08/25/22 16:32 Vomiting Surgical - Exam Vital Signs Pulse Resp BP Pulse Ox 88 20 138/73 100 08/25/22 14:03 08/25/22 14:03 08/25/22 14:03 08/25/22 14:03 - General no distress, no pain - Eyes normal ocular movement, no pale - ENT normal nares, normal mucosa - Respiratory normal expansion, normal respiratory effort - Abdomen Abdomen: soft, non tender Results - Labs 08/26/22 07:40 08/25/22 14:36 Abnormal Lab Results - Last 24 Hours (Table) 08/25/22 08/25/22 08/25/22 Range/Units 14:36 14:36 14:36 RBC 2.34 L (4.30-5.90) m/uL Hgb 7.4 L (13.0-17.5) gm/dL Hct 23.1 L (39.0-53.0) % D-Dimer 1.50 H (<0.60) mg/L FEU Sodium 133 L (137-145) mmol/L Carbon Dioxide 19 L (22-30) mmol/L BUN 23 H (9-20) mg/dL Glucose 100 H (74-99) mg/dL Calcium 8.0 L (8.4-10.2) mg/dL Total Protein 5.8 L (6.3-8.2) g/dL Albumin 3.1 L (3.5-5.0) g/dL Crossmatch 08/25/22 08/25/22 08/26/22 Range/Units 17:53 18:25 07:40 RBC 2.21 L 2.67 L (4.30-5.90) m/uL Hgb 6.9 L* 8.2 L (13.0-17.5) gm/dL Hct 21.2 L 25.2 L (39.0-53.0) % D-Dimer (<0.60) mg/L FEU Sodium (137-145) mmol/L Carbon Dioxide (22-30) mmol/L BUN (9-20) mg/dL Glucose (74-99) mg/dL Calcium (8.4-10.2) mg/dL Total Protein (6.3-8.2) g/dL Albumin (3.5-5.0) g/dL Crossmatch See Detail Diabetes panel 08/25/22 Range/Units 14:36 Sodium 133 L (137-145) mmol/L Potassium 4.4 (3.5-5.1) mmol/L Chloride 105 (98-107) mmol/L Carbon Dioxide 19 L (22-30) mmol/L BUN 23 H (9-20) mg/dL Creatinine 1.00 (0.66-1.25) mg/dL Glucose 100 H (74-99) mg/dL Calcium 8.0 L (8.4-10.2) mg/dL AST 29 (17-59) U/L ALT 20 (4-49) U/L Alkaline Phosphatase 84 (38-126) U/L Total Protein 5.8 L (6.3-8.2) g/dL Albumin 3.1 L (3.5-5.0) g/dL Calcium panel 08/25/22 Range/Units 14:36 Calcium 8.0 L (8.4-10.2) mg/dL Albumin 3.1 L (3.5-5.0) g/dL Pituitary panel 08/25/22 Range/Units 14:36 Sodium 133 L (137-145) mmol/L Potassium 4.4 (3.5-5.1) mmol/L Chloride 105 (98-107) mmol/L Carbon Dioxide 19 L (22-30) mmol/L BUN 23 H (9-20) mg/dL Creatinine 1.00 (0.66-1.25) mg/dL Glucose 100 H (74-99) mg/dL Calcium 8.0 L (8.4-10.2) mg/dL Adrenal panel 08/25/22 Range/Units 14:36 Sodium 133 L (137-145) mmol/L Potassium 4.4 (3.5-5.1) mmol/L Chloride 105 (98-107) mmol/L Carbon Dioxide 19 L (22-30) mmol/L BUN 23 H (9-20) mg/dL Creatinine 1.00 (0.66-1.25) mg/dL Glucose 100 H (74-99) mg/dL Calcium 8.0 L (8.4-10.2) mg/dL Total Bilirubin 0.5 (0.2-1.3) mg/dL AST 29 (17-59) U/L ALT 20 (4-49) U/L Alkaline Phosphatase 84 (38-126) U/L Total Protein 5.8 L (6.3-8.2) g/dL Albumin 3.1 L (3.5-5.0) g/dL Assessment and Plan Assessment: 87-year-old male status post TURBT and right orchiectomy by Dr. Grajeda. He is admitted to the hospital with anemia and shortness of breath. Hemoglobin responded appropriately following transfusion. Urine is light red this morning no clots catheter draining without any issues. From urology standpoint he is stable for discharge, advised him to keep his follow-up with Dr. Sanchez for tomorrow
[2022-08-26 20:47] LABS: % Iron Saturation 17.39 (15.00-50.00); Ferritin 14.8 ng/mL (22.0-322.0)
== END 2022-08-26 14:26 | disposition home or self-care (01) | DRG 696 ==
LOC: EC 13:44 → 4SSUR 17:46
PROVIDERS: ADMIT Family Medicine; ATTEND Family Medicine
PROC: 30233N1 Transfusion of Nonautologous Red Blood Cells into Peripheral Vein, Percutaneous Approach (ICD-10-PCS; principal; 2022-08-25)
DX: R31.0 Gross hematuria (principal); D62 Acute posthemorrhagic anemia; J90 Pleural effusion, not elsewhere classified; J98.11 Atelectasis; J44.0 Chronic obstructive pulmonary disease with (acute) lower respiratory infection; Z20.822 Contact with and (suspected) exposure to COVID-19; N40.0 Benign prostatic hyperplasia without lower urinary tract symptoms; K21.9 Gastro-esophageal reflux disease without esophagitis; G40.909 Epilepsy, unspecified, not intractable, without status epilepticus; Z87.01 Personal history of pneumonia (recurrent); E78.5 Hyperlipidemia, unspecified; J84.10 Pulmonary fibrosis, unspecified; J30.9 Allergic rhinitis, unspecified; G25.0 Essential tremor; G89.29 Other chronic pain; M54.9 Dorsalgia, unspecified; J45.20 Mild intermittent asthma, uncomplicated; Z79.82 Long term (current) use of aspirin; Z79.899 Other long term (current) drug therapy; Z85.828 Personal history of other malignant neoplasm of skin; Z85.51 Personal history of malignant neoplasm of bladder; Z88.5 Allergy status to narcotic agent; Z91.041 Radiographic dye allergy status; Z91.040 Latex allergy status
CPT/HCPCS: 36415; 71046; 71275; 80053; 82607; 82728; 82746; 83540; 83550; 83880; 84484; 85025; 85379; 85610; 85730; 86850; 86900; 86901; 86920; 87636; 93005; 99285

== ENCOUNTER → 2022-09-15 | Outpatient (CLI) | payer MEDICARE, BC ==
[2022-09-15 15:11] LABS: Basophils % (A) 0 %; Eosinophils # (A) 0.1 k/uL (0-0.7); Eosinophils % (A) 1 %; HCT 27.8 % (39.0-53.0); HGB 8.8 gm/dL (13.0-17.5); Hypochromasia Marked; Lymphocytes # (A) 1.5 k/uL (1.0-4.8); Lymphocytes % (A) 19 %; MCH 30.7 pg (25.0-35.0); MCHC 31.8 g/dL (31.0-37.0); MCV 96.5 fL (80.0-100.0); Mean Platelet Volume 7.7; Monocytes # (A) 0.5 k/uL (0-1.0); Monocytes % (A) 6 %; Neutrophils # (A) 5.8 k/uL (1.3-7.7); Neutrophils % (A) 72 %; Platelet Count 264 k/uL (150-450); RBC 2.88 m/uL (4.30-5.90); RDW 14.5 % (11.5-15.5); WBC 8.1 k/uL (3.8-10.6)
== END | disposition home or self-care (01) ==
LOC: LABWHC1 13:34
PROVIDERS: ATTEND Internal Medicine Critical Care Medicine
DX: D64.9 Anemia, unspecified (principal)
CPT/HCPCS: 36415; 85025

== ENCOUNTER → 2023-01-13 | Outpatient (CLI) | payer MEDICARE, BC ==
--- NOTE | 2023-01-13 19:09 | US ---
EXAMINATION TYPE: US kidneys/renal and bladder DATE OF EXAM: 01/13/2023 COMPARISON: NONE CLINICAL INDICATION: Male, 87 years old with history of R31.0 GROSS HEMATURIA; EXAM MEASUREMENTS: Right Kidney: 9.8 x 4.0 x 4.3 cm Left Kidney: 9.1 x 4.9 x 4.6 cm Right Kidney: wnl Left Kidney: visualized portions wnl, limited by overlying bowel gas No hydronephrosis seen on either side. Bladder: Sales Trainer notes: 4.3 x 2.5 x 2.3cm irregular area that appears to be attached to anterior wall with other end appearing mobile and not attached to wall, other irregularities seen along wall, some of which may represent debris Bilateral Jets seen: no IMPRESSION: 1. Abnormal, large irregular filling defect extending from the anterior wall of the bladder into the lumen of the bladder measuring up to 4.3 x 2.5 x 2.3 cm. Additional areas of bladder wall irregularit y and scattered debris. Recommend further correlation with urinalysis, urine cytology, and direct vis ualization to exclude urothelial carcinoma. 2. No hydronephrosis on either side.
== END | disposition home or self-care (01) ==
LOC: RADUSWWP 14:19
PROVIDERS: ATTEND Urology
DX: R31.0 Gross hematuria (principal); N32.89 Other specified disorders of bladder
CPT/HCPCS: 76770

== ENCOUNTER 2023-10-19 18:59 | Observation (INO) | payer MEDICARE, BC ==
[2023-10-19] MEDS: IV FLUID CONTINUATION 1,000 ML IV ONE (19:05)
--- NOTE | 2023-10-19 19:18 | P.GSHP ---
History of Present Illness H&P Date: 10/19/23 88 yo male who underwent a turbt and excision of a sinus tract in the right groin today at the [facility]. He developed a significant groin hematoma post op. I opened the wound and thought I had controlled the bleeding but he continues to bleed. He comes to the hospital for a groin exploration to control the bleeding. The situation has been explained to the patient and his . we will proceed. - Constitutional Constitutional: Denies chills, Denies fever - EENT Eyes: denies blurred vision, denies pain Ears, nose, mouth and throat: Denies headache, Denies sore throat - Cardiovascular Cardiovascular: Denies chest pain, Denies shortness of breath - Respiratory Respiratory: Denies cough, Denies 7 - Gastrointestinal Gastrointestinal: Denies abdominal pain, Denies diarrhea, Denies nausea, Denies vomiting - Genitourinary (Female) Genitourinary: Denies dysuria, Denies hematuria - Genitourinary (Male) Genitourinary: Denies dysuria, Denies hematuria - Musculoskeletal Musculoskeletal: Denies myalgias - Integumentary Integumentary: Denies pruritus, Denies rash - Neurological Neurological: Denies numbness, Denies weakness - Psychiatric Psychiatric: Denies anxiety, Denies depression - Endocrine Endocrine: Denies fatigue, Denies weight change Past Medical History Past Medical History: Cancer, Chest Pain / Angina, COPD, GERD/Reflux, Hyperten haseeb, Osteoarthritis (OA), Pneumonia, Seizure Disorder, Vascular Disorder Additional Past Medical History / Comment(s): hx hypoglycemia. current - recurring bladder cancer for past 20 years. grand mal seizure age 30 none since- pt states of [facility] attributed to low blood sugars, off balance at times, hand tremors, freq.night urination History of Any Multi-Drug Resistant Organisms: None Reported Past Surgical History: Back Surgery, Bladder Surgery, Orthopedic Surgery Additional Past Surgical History / Comment(s): rt rotator cuff, haley cataract surgery , skin cancer, Past Anesthesia/Blood Transfusion Reactions: No Reported Reaction Past Psychological History: No Psychological Hx Reported Smoking Status: Former smoker Past Alcohol Use History: Daily Additional Past Alcohol Use History / Comment(s): quit smoking early 30's Past Drug Use History: None Reported - Past Family History Brother(s) Family Medical History: COPD Sister(s) Family Medical History: COPD Father Family Medical History: Eye Disorder Additional Family Medical History / Comment(s): macular degeneration Mother Family Medical History: CVA/TIA, Dementia, Neurologic Disorder Additional Family Medical History / Comment(s): parkinsons Medications and Allergies Home Medications Medication Instructions Recorded Confirmed Type Aspirin 81 mg PO DAILY 07/31/14 08/25/22 History Omeprazole 20 mg PO DAILY 07/31/14 08/25/22 History Atorvastatin [Lipitor] 20 mg PO HS #30 tab 09/28/18 08/25/22 Rx Acetaminophen Tab [Tylenol] 1,000 mg PO Q4H PRN 08/25/22 08/25/22 History Albuterol Sulfate [Ventolin HFA] 2 puff INHALATION RT-QID PRN 08/25/22 08/25/22 History Budesonide [Pulmicort Flexhaler] 1 puff INHALATION RT-BID 08/25/22 08/25/22 History Loratadine [Claritin] 10 mg PO DAILY 08/25/22 08/25/22 History Topiramate [Topamax] 25 mg PO BID 08/25/22 08/25/22 History Vit C/E/Zn/Coppr/Lutein/Zeaxan 1 cap PO DAILY 08/25/22 08/25/22 History [Preservision Areds 2 Softgel] Multivit/Iron Sulf/Folic Acid 1 each PO DAILY #30 tab 08/26/22 Rx [Multivitamin with Iron] Allergies Allergy/AdvReac Type Severity Reaction Status Date / Time adhesive tape Allergy Rash/Hives Verified 08/25/22 16:32 latex Allergy Rash/Hives Verified 08/25/22 16:32 codeine AdvReac Nausea & Verified 08/25/22 16:32 Vomiting Surgical - Exam - General well developed, well nourished, no distress - Eyes normal ocular movement, no icteric - ENT no hearing loss, no congestion - Neck no masses, trachea midline - Respiratory normal respiratory effort, clear to auscultation - Abdomen Abdomen: soft, non tender, no guarding, no rigid, no rebound - Genitourinary absent right testis. open wound, fresh with bleeding eminating with in. The right groin continues to swell. When i compress the right groin bleeding increases out of the scrotal incision. - Integumentary no rash, no abnormal pigmentation - Neurologic no disoriented, no combative - Psychiatric oriented to time, oriented to person, oriented to place, speech is normal, memory intact Assessment and Plan Assessment: Impression: s/p excision of right scrotal sinus tract with bleeding from a vessel retracted into the inguinal regio=n Plan: exploration of the right inguinal region with control of bleeding
[2023-10-19] MEDS: fentaNYL (PF) 50 MCG/ML 2 ML AMP IVP PRN (20:11)
[2023-10-19] MEDS ORDERED: PHENYLEPHRINE 10 MG/ML VIAL ONE (20:21)
[2023-10-19] MEDS ORDERED: PROPOFOL 10 MG/ML 20 ML VIAL IV ONE (20:21)
[2023-10-19] MEDS ORDERED: fentaNYL (PF) 50 MCG/ML 2 ML AMP ONE (20:21)
[2023-10-19] MEDS ORDERED: SUCCINYLCHOLINE CHLORIDE 200 MG/10 ML VIAL IV ONE (20:21)
[2023-10-19 20:23] LABS: African American GFR (CKD) >90 (>60 ml/min/1.73 sqM); Anion Gap 1 mmol/L; Blood Urea Nitrogen 18 mg/dL (9-20); Calcium 8.4 mg/dL (8.4-10.2); Carbon Dioxide 27 mmol/L (22-30); Chloride 105 mmol/L (98-107); Glucose 93 mg/dL (74-99); Non-African American GFR(CKD) 78 (>60 ml/min/1.73 sqM); Potassium 4.1 mmol/L (3.5-5.1); Sodium 133 mmol/L (137-145)
[2023-10-19 20:35] LABS: Basophils % (A) 0 %; Eosinophils # (A) 0.1 k/uL (0-0.7); Eosinophils % (A) 1 %; HGB 9.7 gm/dL (13.0-17.5); Lymphocytes % (A) 21 %; MCH 31.2 pg (25.0-35.0); MCHC 33.3 g/dL (31.0-37.0); MCV 93.6 fL (80.0-100.0); Monocytes # (A) 0.5 k/uL (0-1.0); Monocytes % (A) 6 %; Neutrophils # (A) 6.7 k/uL (1.3-7.7); Neutrophils % (A) 70 %; Platelet Count 214 k/uL (150-450); RDW 14.2 % (11.5-15.5); WBC 9.5 k/uL (3.8-10.6)
[2023-10-19] MEDS: SODIUM CHLORIDE 0.9% 50 ML with ceFAZolin 1,000 MG IV ONE (20:35)
[2023-10-19] MEDS ORDERED: ACETAMINOPHEN TAB 500 MG TAB PO PRN (21:16)
[2023-10-19] MEDS ORDERED: ALBUTEROL NEBULIZED 2.5 MG/3 ML INHALATION PRN (21:16)
[2023-10-19] MEDS ORDERED: HYDROcodone/APAP 5-325MG 1 EACH TAB PO PRN (21:20)
[2023-10-19 21:22] LABS: HCT 25.2 % (39.0-53.0); HGB 8.3 gm/dL (13.0-17.5); MCH 30.7 pg (25.0-35.0); MCHC 32.9 g/dL (31.0-37.0); MCV 93.4 fL (80.0-100.0); Mean Platelet Volume 7.9; Platelet Count 215 k/uL (150-450); RDW 14.3 % (11.5-15.5); WBC 8.2 k/uL (3.8-10.6)
[2023-10-19] MEDS: LACTATED RINGERS 1,000 ML IV ONE (21:22)
--- NOTE | 2023-10-19 21:28 | P.OP ---
Date of Procedure: 10/19/23 Preoperative Diagnosis: persistent bleeding post excision of scrotal sinuses, status post TURBT Postoperative Diagnosis: same, identification of arterial bleeder Procedure(s) Performed: scrotal exploration, identification of arterial bleeder with control of that. Evacuation of clot. Anesthesia: BOBBYA Surgeon: Jean-Paul Grajeda Estimated Blood Loss (ml): 50 Pathology: none sent Condition: stable Disposition: PACU Indications for Procedure: the patient is 88. Today he went a TURBT and excision of an infected scrotal sinus in the scrotum. He had postoperative bleeding in the groin. I attempted to control the bleeding trans-scrotal he in the recovery room but failed. Due to his age and the amount of bleeding I elected to transfer him to the hospital for further exploration and admission to the hospital. Description of Procedure: patient brought operating suite. He is given a general anesthetic. He is prepped and draped sterilely. Stitches are removed. I explored the scrotum and evacuated large amount of clot. In the area where the sinuses been excised there is an active arterial bleeder. This is clamped and oversewn with 2-0 Vicryl. I then look looked throughout the scrotum control any venous oozing. A irrigate thoroughly. I reinspected the wound and there is no active bleeding. I packed the wound with performed gauze and dressed the wound. The patient is awake and returned recovery room good condition. Patient tolerated procedure well be kept in the hospital overnight.
[2023-10-19] MEDS: DEXTROSE 5%-0.45% NACL 1,000 ML IV SCH (23:40)
[2023-10-20] MEDS ORDERED: LORATADINE 10 MG TAB PO SCH (09:00)
[2023-10-20] MEDS ORDERED: TOPIRAMATE 25 MG TAB PO SCH (09:00)
[2023-10-20] MEDS: FLUTICASONE 110 MCG INHALER INHALATION SCH (09:14)
--- NOTE | 2023-10-20 09:28 | P.PN ---
Subjective Progress Note Date: 10/20/23 Principal diagnosis: Infected scrotal sinus tract The patient underwent bladder tumor resection yesterday by Dr. Grajeda. At that time, an infected right scrotal sinus tract was excised. He required secondary exploration due to postoperative bleeding. He is comfortable this morning and has no complaints. Objective - Vital Signs Vital signs: Vital Signs Temp 98.6 F 10/20/23 07:07 Pulse 82 10/20/23 07:07 Resp 15 10/20/23 07:07 BP 104/61 10/20/23 07:07 Pulse Ox 95 10/20/23 07:07 FiO2 Intake & Output 10/19/23 10/20/23 10/20/23 18:59 06:59 18:59 Intake Total 1050 Output Total 850 Balance 200 Weight 65.9 kg Intake: IV 1050 Output: Urine 750 Estimated Blood Loss 100 Other: Voiding Method Indwelling Catheter - Constitutional General appearance: Present: average body habitus, no acute distress - Genitourinary Genitourinary Comment(s): The Yoder catheter is intact and draining blood-tinged urine. The right scrotal wound is clean. The iodoform gauze was removed, and the wound was repacked. There is no active bleeding. - Psychiatric Psychiatric: Present: A&O x's 3 - Labs CBC & Chem 7: 10/19/23 20:45 10/19/23 19:58 Labs: Abnormal Lab Results - Last 24 Hours (Table) 10/19/23 10/19/23 10/19/23 Range/Units 19:58 19:58 20:45 RBC 3.10 L 2.70 L (4.30-5.90) m/uL Hgb 9.7 L 8.3 L (13.0-17.5) gm/dL Hct 29.0 L 25.2 L (39.0-53.0) % Sodium 133 L (137-145) mmol/L Assessment and Plan (1) Soft tissue infection Current Visit: Yes Status: Acute Code(s): L08.9 - LOCAL INFECTION OF THE SKIN AND SUBCUTANEOUS TISSUE, UNSP SNOMED Code(s): 04607592 Plan: Continue Yoder catheter drainage. Patient will be discharged home once he is ambulating and arrangements have been made for home wound care.
[2023-10-20] MEDS: TOPIRAMATE 25 MG TAB PO SCH (09:47)
[2023-10-20] MEDS: PANTOPRAZOLE 40 MG TABLET PO SCH (09:47)
[2023-10-20] MEDS: CEPHALEXIN 500 MG CAP PO SCH (09:47)
[2023-10-20 10:08] LABS: African American GFR (CKD) 85 (>60 ml/min/1.73 sqM); Anion Gap 5 mmol/L; Blood Urea Nitrogen 15 mg/dL (9-20); Calcium 8.4 mg/dL (8.4-10.2); Carbon Dioxide 28 mmol/L (22-30); Chloride 102 mmol/L (98-107); Glucose 138 mg/dL (74-99); Non-African American GFR(CKD) 73 (>60 ml/min/1.73 sqM); Potassium 4.4 mmol/L (3.5-5.1); Sodium 135 mmol/L (137-145)
[2023-10-20 10:15] LABS: Basophils % (A) 0 %; Eosinophils # (A) 0.2 k/uL (0-0.7); Eosinophils % (A) 3 %; HCT 27.7 % (39.0-53.0); HGB 8.8 gm/dL (13.0-17.5); Lymphocytes # (A) 1.3 k/uL (1.0-4.8); Lymphocytes % (A) 18 %; MCH 30.5 pg (25.0-35.0); MCHC 31.9 g/dL (31.0-37.0); MCV 95.4 fL (80.0-100.0); Mean Platelet Volume 8.1; Monocytes # (A) 0.4 k/uL (0-1.0); Monocytes % (A) 5 %; Neutrophils # (A) 5.6 k/uL (1.3-7.7); Neutrophils % (A) 73 %; Platelet Count 222 k/uL (150-450); RDW 14.1 % (11.5-15.5); WBC 7.6 k/uL (3.8-10.6)
[2023-10-20] MEDS: ACETAMINOPHEN TAB 325 MG TAB PO PRN (13:35)
[2023-10-21 01:40] VITALS: RESP 16
[2023-10-21 07:23] VITALS: BP 117/68; PULSE 85; TEMP 97.8
--- NOTE | 2023-10-21 10:58 | P.DS ---
Providers Date of admission: 10/19/23 19:04 Expected date of discharge: 10/21/23 Attending physician: Jean-Paul Grajeda Primary care physician: Jose David Parsons - Discharge Diagnosis(es) (1) Soft tissue infection Current Visit: Yes Status: Acute Hospital Course: The patient is an 88-year-old white male who underwent transurethral resection of a bladder tumor on October 19, 2023. At that time, an infected right scrotal/groin sinus was excised. The patient blood postoperatively and required scrotal exploration with evacuation of clot and ligation of an arterial bleeder. The wound was packed, and the hospital course was otherwise uneventful. The patient was taught local wound care. At the time of discharge, moderate scrotal edema was noted, as expected. The wound was clean, with no active bleeding. The Yoder catheter was draining clear yellow urine. Procedures: Scrotal exploration with evacuation of clot and ligation of arterial bleeder on October 19, 2023. Patient Condition at Discharge: Good Plan - Discharge Summary Discharge Rx Participant: No New Discharge Prescriptions: New Cephalexin [Keflex] 500 mg PO Q8HR 5 Days #15 cap No Action Omeprazole 20 mg PO AC-BRKFST Aspirin 81 mg PO DAILY Atorvastatin [Lipitor] 20 mg PO HS #30 tab Acetaminophen Tab [Tylenol] 500 mg PO DAILY Vit C/E/Zn/Coppr/Lutein/Zeaxan [Preservision Areds 2 Softgel] 1 cap PO DAILY Ciprofloxacin HCl [Cipro] 500 mg PO BID Topiramate [Topamax] 50 mg PO BID Discharge Medication List Aspirin 81 mg PO DAILY 07/31/14 [History] Omeprazole 20 mg PO AC-BRKFST 07/31/14 [History] Atorvastatin [Lipitor] 20 mg PO HS #30 tab 09/28/18 [Rx] Acetaminophen Tab [Tylenol] 500 mg PO DAILY 08/25/22 [History] Vit C/E/Zn/Coppr/Lutein/Zeaxan [Preservision Areds 2 Softgel] 1 cap PO DAILY 08/25/22 [History] Ciprofloxacin HCl [Cipro] 500 mg PO BID 10/20/23 [History] Topiramate [Topamax] 50 mg PO BID 10/20/23 [History] Cephalexin [Keflex] 500 mg PO Q8HR 5 Days #15 cap 10/21/23 [Rx] Follow up Appointment(s)/Referral(s): [facility] Visiting Nurse, [NON-STAFF] - As Needed ([facility] will call you to schedule your in home nursing visits. ) Jean-Paul Grajeda MD [STAFF PHYSICIAN] - 10/23/23 Activity/Diet/Wound Care/Special Instructions: Discharge home with Yoder catheter. Patient to change iodoform gauze dressing twice daily. Okay to shower or bathe daily. Discharge/Stand Alone Forms: Help In The Home
== END 2023-10-21 14:06 | disposition home health service (06) ==
LOC: 4SSUR 19:04
PROVIDERS: ADMIT Urology; ATTEND Urology
DX: L76.32 Postprocedural hematoma of skin and subcutaneous tissue following other procedure (principal); L08.9 Local infection of the skin and subcutaneous tissue, unspecified; J44.9 Chronic obstructive pulmonary disease, unspecified; I10 Essential (primary) hypertension; K21.9 Gastro-esophageal reflux disease without esophagitis; Z85.51 Personal history of malignant neoplasm of bladder; Z85.828 Personal history of other malignant neoplasm of skin; Z87.891 Personal history of nicotine dependence; Z79.82 Long term (current) use of aspirin; Z79.899 Other long term (current) drug therapy; Z88.5 Allergy status to narcotic agent; Z91.040 Latex allergy status
CPT/HCPCS: 80048; 85025; 85027; 86850; 86900; 86901